=== PATIENT | female | born 1940 | race Caucasian/White ===

== ENCOUNTER → 2020-09-01 | Outpatient (CLI) | payer MEDICARE | END | disposition home or self-care (01) | LOC: PLD 15:50 → LAB SHORT 15:50 | DX: D48.5 Neoplasm of uncertain behavior of skin (principal) | CPT/HCPCS: 88305 ==

== ENCOUNTER → 2021-04-21 | Outpatient (CLI) | payer MEDICARE | END | disposition home or self-care (01) | LOC: LAB 15:40 → LAB SHORT 15:40 | DX: D48.5 Neoplasm of uncertain behavior of skin (principal) | CPT/HCPCS: 88305 ==

== ENCOUNTER 2022-05-22 11:29 | Observation (INO) | payer MEDICARE ==
[~2022-05-22] VITALS: Ht 144.8 cm; Wt 31.8 kg
[2022-05-22 13:07] LABS: BASOPHILS ABSOLUTE AUTO 0.02 K/mm3 (0.00-0.23); BASOPHILS PERCENT AUTO 0 % (0-2); EOSINOPHILS ABSOLUTE AUTO 0.01 K/mm3 (0.00-0.68); EOSINOPHILS PERCENT AUTO 0 % (0-6); Hematocrit 39.2 % (33.0-51.0); Hemoglobin 12.8 g/dL (11.5-16.0); IMMATURE GRAN ABSOLUTE AUTO 0.01 K/mm3 (0.00-0.10); IMMATURE GRAN PERCENT AUTO 0 % (0-1); LYMPHOCYTES ABSOLUTE AUTO 1.37 K/mm3 (0.84-5.20); LYMPHOCYTES PERCENT AUTO 27 % (21-46); MONOCYTES PERCENT AUTO 6 % (4-13); Mean Corpuscular HGB 29.4 pg (26.0-34.0); Mean Corpuscular HGB Conc 32.7 g/dL (31.5-36.5); Mean Corpuscular Volume 90 fL (80-100); Mean Platelet Volume 10.8 fL (9.1-12.4); NEUTROPHILS ABSOLUTE AUTO 3.34 K/mm3 (1.96-9.15); NEUTROPHILS PERCENT AUTO 66 % (41-73); Platelet Count 242 K/mm3 (150-400); RDW Coefficient Variation 13.8 % (11.7-14.2); RDW Standard Deviation 46.3 fL (35.1-46.3); Red Blood Cell Count 4.35 M/mm3 (3.80-5.20); White Blood Cell Count 5.05 K/mm3 (4.00-11.30)
[2022-05-22 13:30] LABS: Albumin/Globulin Ratio 0.9 (0.8-1.8); Bilirubin, Total 0.5 mg/dL (0.1-1.0); Bun/Creatinine Ratio 63.6 (12.0-20.0); Calcium, Blood 9.8 mg/dL (8.5-10.1); Creatinine, Blood 0.98 mg/dL (0.40-1.00); Globulin, Blood 3.4 g/dL (2.2-4.0); Potassium, Blood 3.6 mmol/L (3.5-5.5); Total Protein, Blood 6.4 g/dL (6.4-8.2)
[2022-05-22 19:36] LABS: Influenza A, PCR NEGATIVE (NEGATIVE); Influenza B, PCR NEGATIVE (NEGATIVE); Resp Syncytial Virus, PCR NEGATIVE (NEGATIVE)
[2022-05-22 19:59] LABS: Source, Urine Fem Cath
[2022-05-22 20:03] LABS: Bilirubin, Urine Neg (Neg); Blood, Urine 2+ (Neg); Glucose Qualitative, Urine Neg (Neg); Ketones, Urine 2+ (Neg); Leukocyte Esterase, Urine Neg (Neg); Nitrite, Urine Neg (Neg); Protein, Urine 1+ (Neg); Urobilinogen, Urine NORM (Normal)
[2022-05-22 20:16] LABS: Appearance, Urine Clear (Clear); Color, Urine Yellow (P-Yellow)
[2022-05-22 20:17] LABS: Bacteria Rare /hpf; Red Blood Cells, Urine 0-2 /hpf (0-2); Squamous Epithelial Cells Few /hpf (Few); White Blood Cells, Urine 0-2 /hpf (0-5)
[2022-05-22 21:51] LABS: SARS-Cov-2 (COVID-19) PCR, MMC POSITIVE (NEGATIVE)
[2022-05-22] MEDS ORDERED: ALMACONE SUSPE355 ML PO (22:44)
[2022-05-22] MEDS ORDERED: FAMO20 PO (22:44)
[2022-05-22] MEDS ORDERED: ONDA4ODT MM (22:44)
[2022-05-23] MEDS ORDERED: Lisinopril2.5 MG PO (02:06)
--- NOTE | 2022-05-23 04:08 | NUR ---
ADMISSION: PATIENT IS RECIEVED FROM ER [facility]IA [employer] OF BL[employer] TARRY LOOSE STOOL. VSS, REPORTED STOMACH UPSET THAT RESOLVED WITH INITIATION OF PROTONOX GTT. PATIENT IS ORIENTED TO ROOM AND CALL RIDER. EDUCATION IS GIVEN ON ENHANCE ISOLATION FOR COVID. PATIENT IS WEAK WHEN SSISTED TO BSC, BED ALARM IS ON FOR SAFETY.
[2022-05-23 06:03] LABS: BASOPHILS ABSOLUTE AUTO 0.02 K/mm3 (0.00-0.23); BASOPHILS PERCENT AUTO 0 % (0-2); EOSINOPHILS ABSOLUTE AUTO 0.03 K/mm3 (0.00-0.68); EOSINOPHILS PERCENT AUTO 1 % (0-6); Hematocrit 37.1 % (33.0-51.0); Hemoglobin 11.8 g/dL (11.5-16.0); IMMATURE GRAN ABSOLUTE AUTO 0.01 K/mm3 (0.00-0.10); IMMATURE GRAN PERCENT AUTO 0 % (0-1); LYMPHOCYTES ABSOLUTE AUTO 1.36 K/mm3 (0.84-5.20); LYMPHOCYTES PERCENT AUTO 25 % (21-46); MONOCYTES PERCENT AUTO 6 % (4-13); Mean Corpuscular HGB 29.5 pg (26.0-34.0); Mean Corpuscular HGB Conc 31.8 g/dL (31.5-36.5); Mean Corpuscular Volume 93 fL (80-100); Mean Platelet Volume 10.5 fL (9.1-12.4); NEUTROPHILS ABSOLUTE AUTO 3.66 K/mm3 (1.96-9.15); NEUTROPHILS PERCENT AUTO 68 % (41-73); Platelet Count 176 K/mm3 (150-400); RDW Standard Deviation 47.1 fL (35.1-46.3); White Blood Cell Count 5.38 K/mm3 (4.00-11.30)
[2022-05-23 06:48] LABS: Albumin, Blood 2.9 g/dL (3.4-5.0); Bilirubin, Total 0.4 mg/dL (0.1-1.0); Bun/Creatinine Ratio 56.6 (12.0-20.0); Creatinine, Blood 0.99 mg/dL (0.40-1.00); Globulin, Blood 2.9 g/dL (2.2-4.0); Potassium, Blood 3.3 mmol/L (3.5-5.5); Total Protein, Blood 5.8 g/dL (6.4-8.2)
--- NOTE | 2022-05-23 07:21 | NUR ---
SHIFT SUMMARY: PATIENT IS [place] AND HAS BILAT HEARING AIDES. TOLERATING A CLEAR LIQUID DIET FAIR. GI CONSULT WAS CALLED. PATIENT REPORT ABD. DISCOMFORT AND NOT EATING FOR A COUPLE MONTHS. PATIENT ALSO STAES SHE HAS NOT BEEN TAKING MEDICATIONS ON HER MED REC, "THEY DID NOT WORK." PROTONIX GTT AND IVF ARE INFUSING PER MD ORDER. PATIENT WAS INC. OF ONE BLACK LIQUID STOOL THIS SHIFT.
[2022-05-23 13:20] LABS: Hematocrit 34.2 % (33.0-51.0); Hemoglobin 10.9 g/dL (11.5-16.0)
[2022-05-23 13:33] LABS: C-REACTIVE PROTEIN, EXT RANGE 1.45 mg/dL (0.000-0.300); Free Thyroxine 0.85 ng/dL (0.70-1.60); Thyroid Stimulating Hormone 1.72 uIU/mL (0.360-4.800)
--- NOTE | 2022-05-23 17:10 | NUR ---
SHIFT SUMMARY PT A&OX 4 AND IN PLEASENT MOOD T/O SHIFT. COVID + , ENHANCED PRECAUTIONS. SUPPOSITORY ADMIN PER ORDERS, PT REFUSED [facility] @ THIS TIME. C/O STAFF NOT BEING IN ROOM T/O SHIFT, C/O BEING ABLE TO HEAR STAFF WORKING IN GARCIA. STATES "I AM JUST NOT IMPORTANT TO YOU". PT APPEARS ANXIOUS. VSS. CALL LIGHT W/IN REACH. BED ALARM IN PLACE. TOLERATING CLEAR LIQUID DIET, C/O PAIN AFTER PO K+ ADMIN-MALOX PROVIDED W/ MIN RELIEF.
[2022-05-23 21:17] LABS: Hematocrit 32.5 % (33.0-51.0); Hemoglobin 10.6 g/dL (11.5-16.0)
--- NOTE | 2022-05-24 04:39 | NUR ---
SHIFT SUMMARY: PATIENT REFUSED ENEMA @ 1999 BECAUSE SHE DID NOT SLEEP WELL THE PREVIOUS NIGHT AND IS REQUESTING SLEEP AIDE. "I DON'T WANT TO BE UP GOING TO THE BATHROOM ALL NIGHT!" DR ROJAS WAS NOTIFIED OF REQUEST FOR SLEEP AIDE AND REFUSAL OF ENEMA. ORDER FOR MELATONIN WAS OBTAINED AND MED WAS GIVEN WITH GOOD EFFECT. PATIENT WAS DIFFICULT TO WAKE FOR VS ASSESSMENT BUT WAS ABLE TO ANSWER ALL QUESTIONS. NO NEUROLOGICAL CHANGES OBSERVED AT THIS TIME,VSS. BED ALARM IS ON FOR SAFETY. BLADDER SCAN THIS SHIFT IS 147MLS. PATIENT HAD MULTIPLE SMALL LIQIUD BM'S. WITH ONE MEDIUM HARD FORMED.
[2022-05-24 05:55] LABS: Hematocrit 29.9 % (33.0-51.0); Hemoglobin 9.8 g/dL (11.5-16.0); Mean Corpuscular HGB 29.8 pg (26.0-34.0); Mean Corpuscular HGB Conc 32.8 g/dL (31.5-36.5); Mean Corpuscular Volume 91 fL (80-100); Mean Platelet Volume 11.1 fL (9.1-12.4); Platelet Count 171 K/mm3 (150-400); RDW Coefficient Variation 13.9 % (11.7-14.2); Red Blood Cell Count 3.29 M/mm3 (3.80-5.20); White Blood Cell Count 4.69 K/mm3 (4.00-11.30)
[2022-05-24 06:19] LABS: Albumin, Blood 2.2 g/dL (3.4-5.0); Albumin/Globulin Ratio 0.8 (0.8-1.8); Bilirubin, Total 0.3 mg/dL (0.1-1.0); Bun/Creatinine Ratio 39.1 (12.0-20.0); Calcium, Blood 8.8 mg/dL (8.5-10.1); Creatinine, Blood 0.92 mg/dL (0.40-1.00); Globulin, Blood 2.6 g/dL (2.2-4.0); Potassium, Blood 4.4 mmol/L (3.5-5.5); Total Protein, Blood 4.8 g/dL (6.4-8.2)
[2022-05-24 15:50] LABS: Hematocrit 35.7 % (33.0-51.0); Hemoglobin 11.3 g/dL (11.5-16.0)
--- NOTE | 2022-05-24 17:49 | NUR ---
SHIFT SUMMARY PT A&O X 2-3. FORGETFUL, AT TIMES CONFUSED. PT HAS STATED SHE WANTS TO GO HOME AND DOES NOT UNDERSTAND WHY SHE'S HERE. RE-ORIENTED PT TO REASON FOR HOSPITALIZATION, MADE MD AWARE OF PT'S CONFUSION ABOUT WHY SHE'S HERE. H&H TODAY 9.8 & 29.9.
--- NOTE | 2022-05-25 04:32 | NUR ---
SHIFT SUMMARY: NO ACUTE CHANGES THIS SHIFT. ISOLATED ELEVATED BP THIS MORNING IS OBSERVED, PATIENT IS ASYMPTOMATIC. NO BM'S THIS SHIFT, BOWEL CARE AND PRUNE JUICE WERE GIVEN. POOR PO INTAKE, REFUSED SNACK.
[2022-05-25 08:54] LABS: Hematocrit 38.4 % (33.0-51.0); Hemoglobin 12.5 g/dL (11.5-16.0); Mean Corpuscular HGB 29.8 pg (26.0-34.0); Mean Corpuscular HGB Conc 32.6 g/dL (31.5-36.5); Mean Corpuscular Volume 92 fL (80-100); Mean Platelet Volume 10.3 fL (9.1-12.4); Platelet Count 186 K/mm3 (150-400); RDW Coefficient Variation 14.1 % (11.7-14.2); RDW Standard Deviation 47.2 fL (35.1-46.3); Red Blood Cell Count 4.19 M/mm3 (3.80-5.20); White Blood Cell Count 6.89 K/mm3 (4.00-11.30)
[2022-05-25 09:09] LABS: Bun/Creatinine Ratio 20.8 (12.0-20.0); Calcium, Blood 9.4 mg/dL (8.5-10.1); Creatinine, Blood 1.01 mg/dL (0.40-1.00); Potassium, Blood 3.9 mmol/L (3.5-5.5)
[2022-05-25] MEDS ORDERED: DOCU100 PO (11:54)
[2022-05-25] MEDS ORDERED: ONDA4ODT MM (11:54)
[2022-05-25] MEDS ORDERED: MIRT30ST PO (11:54)
[2022-05-25] MEDS ORDERED: PANTOPRAZOLE SO40 M1 PO (11:56)
[2022-05-25] MEDS ORDERED: SENN187 PO (11:57)
[2022-05-25] MEDS ORDERED: MIRALAX17 GM PO (11:57)
--- NOTE | 2022-05-25 13:44 | NUR ---
DC HOME RETURNED FROM LUNCH AND PT HAD LEFT BEFORE DC INSTRUCTIONS COULD BE GIVEN. LVM REGARDING FOLLOW UP APPT WITH PCP, 06/02/22 AT 16:24 AT 2 DIFFERENT PH #'s LISTED IN CHART, & [phone]. PIV WAS DC'D PRIOR TO DC WITH CATH TIP INTACT, NO REDNESS OR SWELLING NOTED AT SITE.
== END 2022-05-25 13:16 | disposition home or self-care (01) ==
LOC: ER 11:29 → MEDS 11:30 → ER 05-23 01:30 → MEDS 05-23 01:30
PROVIDERS: Internal Medicine; Physician Assistant; Student in an Organized Health Care Education/Training Program; ADMIT Internal Medicine
DX: K92.1 Melena (principal); E87.6 Hypokalemia; K59.00 Constipation, unspecified; R74.8 Abnormal levels of other serum enzymes; U07.1 COVID-19; E46 Unspecified protein-calorie malnutrition; I10 Essential (primary) hypertension; K21.9 Gastro-esophageal reflux disease without esophagitis; Z88.6 Allergy status to analgesic agent; Z79.899 Other long term (current) drug therapy; Z20.822 Contact with and (suspected) exposure to COVID-19
CPT/HCPCS: 0241U; 36415; 51798; 74177; 80048; 80053; 81001; 82272; 82728; 83540; 83550; 83690; 83880; 84439; 84443; 85014; 85018; 85025; 85027; 86140; 93005; 93010; 96361; 96374; 96375; 96376; 99285-25; A9270; C9113; G0378; J1885; J2405; J7030; M0222; Q9967

== ENCOUNTER 2022-06-11 15:16 | Emergency (ER) | payer MEDICARE ==
[~2022-06-11] VITALS: Ht 137.2 cm; Wt 31.8 kg
[~2022-06-11 15:16] MED LIST: ALMACONE SUSPE355 ML PO; DOCU100 PO; FAMO20 PO; Lisinopril2.5 MG PO; MIRALAX17 GM PO; MIRT30ST PO; ONDA4ODT MM; PANTOPRAZOLE SO40 M1 PO; SENN187 PO
[2022-06-11 16:35] LABS: BASOPHILS ABSOLUTE AUTO 0.02 K/mm3 (0.00-0.23); BASOPHILS PERCENT AUTO 0 % (0-2); EOSINOPHILS ABSOLUTE AUTO 0.01 K/mm3 (0.00-0.68); EOSINOPHILS PERCENT AUTO 0 % (0-6); Hematocrit 34.1 % (33.0-51.0); Hemoglobin 11.5 g/dL (11.5-16.0); IMMATURE GRAN ABSOLUTE AUTO 0.01 K/mm3 (0.00-0.10); IMMATURE GRAN PERCENT AUTO 0 % (0-1); LYMPHOCYTES ABSOLUTE AUTO 1.22 K/mm3 (0.84-5.20); LYMPHOCYTES PERCENT AUTO 25 % (21-46); MONOCYTES ABSOLUTE AUTO 0.34 K/mm3 (0.16-1.47); MONOCYTES PERCENT AUTO 7 % (4-13); Mean Corpuscular HGB 30.2 pg (26.0-34.0); Mean Corpuscular HGB Conc 33.7 g/dL (31.5-36.5); Mean Corpuscular Volume 90 fL (80-100); Mean Platelet Volume 9.6 fL (9.1-12.4); NEUTROPHILS ABSOLUTE AUTO 3.25 K/mm3 (1.96-9.15); NEUTROPHILS PERCENT AUTO 67 % (41-73); Platelet Count 310 K/mm3 (150-400); RDW Standard Deviation 51.6 fL (35.1-46.3); Red Blood Cell Count 3.81 M/mm3 (3.80-5.20); White Blood Cell Count 4.85 K/mm3 (4.00-11.30)
[2022-06-11 17:06] LABS: Albumin, Blood 2.9 g/dL (3.4-5.0); Bilirubin, Total 0.5 mg/dL (0.1-1.0); Bun/Creatinine Ratio 21.5 (12.0-20.0); Calcium, Blood 10.2 mg/dL (8.5-10.1); Creatinine, Blood 1.07 mg/dL (0.40-1.00); Globulin, Blood 2.9 g/dL (2.2-4.0); Potassium, Blood 3.8 mmol/L (3.5-5.5); Total Protein, Blood 5.8 g/dL (6.4-8.2)
[2022-06-11] MEDS ORDERED: OMEP20ER PO (23:06)
[2022-06-11] MEDS ORDERED: HYDROCODONE-AC1 EAC7 PO (23:07)
[2022-06-11] MEDS ORDERED: ZESTRIL40 MG PO (23:08)
[2022-06-11] MEDS ORDERED: FOSAMAX70 MG PO (23:08)
[2022-06-11] MEDS ORDERED: OXYB5 PO (23:12)
[2022-06-12] MEDS ORDERED: PROMETHAZINE12.5 M1 PO (02:35)
[2022-06-12] MEDS ORDERED: DICY20 PO (02:35)
[2022-06-12] MEDS ORDERED: ONDA4ODT MM (02:35)
== END 2022-06-12 08:18 | disposition home or self-care (01) ==
LOC: ER 15:16
PROVIDERS: Physician Assistant
DX: K92.1 Melena (principal); R10.9 Unspecified abdominal pain; G89.29 Other chronic pain; R11.0 Nausea; K21.9 Gastro-esophageal reflux disease without esophagitis; Z88.6 Allergy status to analgesic agent; Z88.2 Allergy status to sulfonamides; Z79.899 Other long term (current) drug therapy
CPT/HCPCS: 36415; 74174; 80053; 83605; 83690; 85025; C9113; J2270; J2405; J7030; Q9967

== ENCOUNTER 2022-06-24 14:53 | Inpatient (IN) | payer MEDICARE ==
[~2022-06-24] VITALS: Ht 157.5 cm; Wt 52.3 kg
[~2022-06-24 14:53] MED LIST changes: +Bentyl20 MG PO; +CEPH500 PO; +DICY20 PO; +FOSAMAX70 MG PO; +HYDROCODONE-AC1 EAC7 PO; +MIRTAZAPINE30 MG PO; +OMEP20ER PO; +ONDA4 PO; +OXYB5 PO; +PROMETHAZINE12.5 M1 PO; +SUCR1 PO; +ZESTRIL40 MG PO
[2022-06-24 15:54] LABS: BASOPHILS ABSOLUTE AUTO 0.03 K/mm3 (0.00-0.23); BASOPHILS PERCENT AUTO 1 % (0-2); EOSINOPHILS ABSOLUTE AUTO 0.03 K/mm3 (0.00-0.68); EOSINOPHILS PERCENT AUTO 1 % (0-6); Hematocrit 29.4 % (33.0-51.0); Hemoglobin 9.7 g/dL (11.5-16.0); IMMATURE GRAN ABSOLUTE AUTO 0.03 K/mm3 (0.00-0.10); IMMATURE GRAN PERCENT AUTO 1 % (0-1); LYMPHOCYTES ABSOLUTE AUTO 0.78 K/mm3 (0.84-5.20); LYMPHOCYTES PERCENT AUTO 15 % (21-46); MONOCYTES ABSOLUTE AUTO 0.26 K/mm3 (0.16-1.47); MONOCYTES PERCENT AUTO 5 % (4-13); Mean Corpuscular HGB 30.1 pg (26.0-34.0); Mean Corpuscular Volume 91 fL (80-100); Mean Platelet Volume 10.4 fL (9.1-12.4); NEUTROPHILS ABSOLUTE AUTO 4.09 K/mm3 (1.96-9.15); NEUTROPHILS PERCENT AUTO 78 % (41-73); Platelet Count 246 K/mm3 (150-400); RDW Coefficient Variation 17.2 % (11.7-14.2); RDW Standard Deviation 56.9 fL (35.1-46.3); Red Blood Cell Count 3.22 M/mm3 (3.80-5.20); White Blood Cell Count 5.22 K/mm3 (4.00-11.30)
[2022-06-24 16:15] LABS: Albumin, Blood 2.2 g/dL (3.4-5.0); Albumin/Globulin Ratio 0.9 (0.8-1.8); Bilirubin, Total 0.2 mg/dL (0.1-1.0); Bun/Creatinine Ratio 20.8 (12.0-20.0); Calcium, Blood 10.7 mg/dL (8.5-10.1); Creatinine, Blood 1.3 mg/dL (0.40-1.00); Globulin, Blood 2.4 g/dL (2.2-4.0); Potassium, Blood 3.8 mmol/L (3.5-5.5); Total Protein, Blood 4.6 g/dL (6.4-8.2)
[2022-06-24 18:35] LABS: Percent Saturation 32.7 % (15.0-50.0)
[2022-06-24] MEDS ORDERED: METO50ER PO (20:59)
[2022-06-24] MEDS ORDERED: PANTOPRAZOLE SO40 M2 PO (21:00)
[2022-06-25 05:53] LABS: Hemoglobin 9.3 g/dL (11.5-16.0); Mean Corpuscular HGB 30.4 pg (26.0-34.0); Mean Corpuscular HGB Conc 33.2 g/dL (31.5-36.5); Mean Corpuscular Volume 92 fL (80-100); Mean Platelet Volume 10.9 fL (9.1-12.4); Platelet Count 210 K/mm3 (150-400); RDW Coefficient Variation 17.1 % (11.7-14.2); Red Blood Cell Count 3.06 M/mm3 (3.80-5.20); White Blood Cell Count 5.59 K/mm3 (4.00-11.30)
[2022-06-25 06:02] LABS: Bun/Creatinine Ratio 23.2 (12.0-20.0); Calcium, Blood 10.1 mg/dL (8.5-10.1); Creatinine, Blood 1.12 mg/dL (0.40-1.00); Potassium, Blood 3.9 mmol/L (3.5-5.5)
--- NOTE | 2022-06-25 07:42 | NUR ---
Shila slept well overnight after having a light snack at hs. Fentanyl given twice overnight with good relief to right hip. This morning, patient requested and received norco 10mg with her AM meds. Of note, the patient's hands and to a lesser degree are purple/blue. patient states baseline. Radial Radial pulses strong, dorsalis pulses thready but palpable. cap refill >3 in all distal extremities. Patient is unsure how long they have been so blue. Other than the discoloration, skin is intact with scattered small bruises throughout. patient has had only sips and chips since 2400. Covid test completed to lab. hoping for surgery today.
[2022-06-25 08:15] LABS: Influenza A, PCR NEGATIVE (NEGATIVE); Influenza B, PCR NEGATIVE (NEGATIVE); Resp Syncytial Virus, PCR NEGATIVE (NEGATIVE); SARS-Cov-2 (COVID-19) PCR, MMC NEGATIVE (NEGATIVE)
--- NOTE | 2022-06-25 18:16 | NUR ---
SHIFT SUMMARY: NO ACUTE EVENTS. C/O PAIN IN R HIP, RLE, AND BACK; MEDICATED PER EMAR WITH ADEQUATE RELIEF. HAS BEEN HYPOTENSIVE (80-90/50-60'S), HR < 100; GAVE LR BOLUS, CHANGED BP CUFF TO PEDIATRIC FOR BETTER ACCURACY. NO EVENTS ON TELE, SR. WAS NPO ALL DAY IN PREP FOR SURGERY; DR. CARDOSO STOPPED BY THIS EVENING AND STATED SHE WOULD BE THE FIRST CASE TOMORROW MORNING. HAD CT ABD/PEL.
--- NOTE | 2022-06-25 20:30 | NUR ---
ASSUMED CARE. AOX3, [place], EASIER TO HEAR IN LEFT SIDE. C/O PAIN TO THE RIGHT HIP, LATERAL ROTATION NOTED TO LLE. SWELLING TO THE RIGHT HIP INTO THE RIGHT GROIN. SHOOTING PAIN WITH SLIGHTLY MOVEMENT. PAIN 8/10. 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 VITALS WNL. 14 F HANSON PLACED DUE TO RETENTION. UA SENT TO LAB. GOOD RETURN NOTED, CLEAR YELLOW. MEDS GIVEN, MEDICATED FOR PAIN. CALL LIGHT IN REACH, BED IN LOW POSITION. WILL MONITOR.
[2022-06-25 20:35] LABS: Source, Urine Foley catheter
[2022-06-25 20:41] LABS: Bilirubin, Urine Neg (Neg); Blood, Urine Neg (Neg); Glucose Qualitative, Urine Neg (Neg); Ketones, Urine 1+ (Neg); Leukocyte Esterase, Urine Neg (Neg); Nitrite, Urine Neg (Neg); Protein, Urine 1+ (Neg); Specific Gravity, Urine 1.025 (1.003-1.022); Urobilinogen, Urine NORM (Normal)
[2022-06-25 20:48] LABS: Appearance, Urine Clear (Clear); Color, Urine Yellow (P-Yellow)
--- NOTE | 2022-06-25 22:00 | NUR ---
PT RESTING COMFORTABLY IN BED, DENIES WANTING TO BE REPOSITIONED DUE TO FEAR OF PAIN. PAIN AT TOLERATBLE LEVEL AT THIS TIME. IVF COMPLETED.
--- NOTE | 2022-06-25 23:06 | NUR ---
TONY WOKE UP TO PAIN IN THE RLE. MEDICATED WITH FENT. 25MCQ.
[2022-06-26 04:52] LABS: Hematocrit 29.1 % (33.0-51.0); Hemoglobin 9.7 g/dL (11.5-16.0); Mean Corpuscular HGB 30.2 pg (26.0-34.0); Mean Corpuscular HGB Conc 33.3 g/dL (31.5-36.5); Mean Corpuscular Volume 91 fL (80-100); Mean Platelet Volume 10.5 fL (9.1-12.4); Platelet Count 228 K/mm3 (150-400); RDW Coefficient Variation 17.2 % (11.7-14.2); RDW Standard Deviation 56.5 fL (35.1-46.3); Red Blood Cell Count 3.21 M/mm3 (3.80-5.20); White Blood Cell Count 6.82 K/mm3 (4.00-11.30)
[2022-06-26 05:10] LABS: Bun/Creatinine Ratio 25.2 (12.0-20.0); Calcium, Blood 9.9 mg/dL (8.5-10.1); Creatinine, Blood 1.07 mg/dL (0.40-1.00)
--- NOTE | 2022-06-26 05:35 | NUR ---
SHIFT SUMMARY: PT REMAINS STABLE, VS WNL. PAIN MANAGED WITH CURRENT TREATMENTS. NPO SINCE MIDNIGHT. WAS ABLE TO SLEEP WELL. SURGICAL PACK ON CHART. HANSON 14 F PLACED, WITH GOOD OUTPUT. UA WAS SENT TO LAB. RLE PAINFUL TO MOVEMENT IN THE SLIGHTEST, LATERAL ROTATION NOTED, SWELLING RIGHT HIP THAT FADES INTO THE VAGINAL AREA. KIDNEY FUNCTIONS IMPROVED SLIGHTLY PER MORNING LABS, UA NEGATIVE FOR UTI. WILL REPORT TO DAYSHIFT. CALL LIGHT REMAINS IN REACH.
--- NOTE | 2022-06-26 10:50 | NUR ---
pt is having surgery today, day surg nurses here getting her ready, and placing new iv, will leave via bed.
--- NOTE | 2022-06-26 12:07 | NUR ---
pt leaving for surgery at this time.
--- NOTE | 2022-06-26 12:26 | NUR ---
pt will be going to icu instead of surgery
--- NOTE | 2022-06-26 13:00 | NUR ---
CRITICAL LOW CBG... THIS RN CHECKED THE PT'S CBG WITH A FINGER STICK, THE RESULTS WERE "CRITICAL LO" WHICH PER THE CBG METER IS <10. THE PT WAS GIVEN 1 AMP OF D50 AND A CBG RECHECK AT 1320 SHOWED CBG OF 147. THE PT WAS MUCH MORE AWAKE AND ALERT THAN WHEN SHE ARRIVED TO THE UNIT. THE PT'S FINGERS WERE NOT DARK PURPLE. WAS AT THE BEDSIDE AND VERIFIED THIS CRITICAL LOW CBG. WILL CONTINUE TO MONITOR.
[2022-06-26 13:41] LABS: Glucose, Blood 143 mg/dL (70-99)
--- NOTE | 2022-06-26 14:42 | NUR ---
PT ARRIVAL TO THE UNIT.... PT ARRIVED ON THE UNIT APROX 1245. SHE WAS VERY SLEEPY, ROUSED TO LOUD VERBAL AND PHYSICAL STIMULI, THE PT WAS ABLE TO ANSWER SIMPLE QUESTIONS BUT FEEL BACK ASLEEP SOON THE STIMULI WAS STOPPED. THE PT'S VS STABLE AT THE TIME OF ARRIVAL WITH PT BEING IN SR IN THE 90'S SBPs STABLE IN THE 90'S-100'S MAPS >75. THE PT'S FINGER TIPS WERE DARK PURPLE, RADIAL PULSES WEAK BUT PALPABLE. THE PT'S FEET WERE COLD, TIPS OF TOES ARE DUSKY BUT PULSES ALSO PALPABLE. O2 SATS 90-100% ON RA. RR 12-16. L/S CLEAR T/O. BT PRESENT AND HYPOACTIVE, ABD SOFT AND NONTENDER TO PALPATION. THE PT'S RIGHT LEG IS SHORTER THAN THE LEFT AND EXTERNALLY ROTATED. THE PT IS VERY PAINFUL TO TOUCH. THE PT'S CBG WAS CHECKED BY FINGER STICK, THE METER SHOWED "LO" WHICH IS LESS THAN [address] JACOBO AT THE BEDSIDE AND GAVE VERBAL ORDERS FOR 1 AMP OF D50. THIS WAS GIVEN. THE PT'S CBG RECHECK WAS DONE WITH LAB DRAW THAT SHOWED THE PT'S CBG WAS 147. THE PT IS AWAKE AND ALERT SINCE SHE WAS GIVEN THE D50. THE PT IS ASKING FOR WATER AND JELLO AT THIS TIME. THE PT TOLERATED WATER WITH A STRAW AND ATE 50% OF THE JELLO CUP. A POWERGLIDE WAS PLACED IN THE PT'S NIRU. WILL CONTINUE TO MONITOR.
--- NOTE | 2022-06-26 15:46 | NUR ---
CBG CHECK... THE PT'S CBG WAS RECHECKED BY FINGER STICK, THE RESULT CAME BACK CRITICAL LOW AT 45. THE PT'S FINGERS WERE STILL VERY DUSKY, THIS RN RECHECKED THE CBG FROM HER POWER GLIDE WHICH SHOWED 147. THE PT' CONTINUES TO BE AWAKE AND ALERT. THE CRITICAL RESULTS ARE NOT SHOWING UP IN THE PT'S LAB REPORTS, THIS RN CALL THE LAB, PER THE CONSERVATION ENGINEER THEY ARE UNSURE TO WHY THE CRITICAL RESULTS ARE NOT SHOWING UP AT THIS TIME. WILL CONTINUE TO MONITOR.
--- NOTE | 2022-06-26 15:51 | NUR ---
PT'S DUSKY HANDS... PER THE PT SHE STATES THAT HER HANDS HAVE BEEN PURPLE AND DUSKY "FOR THE PAST FEW WEEKS." THE PT WAS ALSO C/O OF PAIN TO HER HANDS WHEN THEY BECOME DARK PURPLE. THE PT ALSO STATED SHE "USED TO HAVE A HARD TIME WITH LOW BLOOD SUGARS A FEW YEARS BACK." WILL CONTINUE TO MONITOR.
--- NOTE | 2022-06-26 16:10 | NUR ---
PT UPDATE.... DR. JACOBO WAS UPDATED ON THE PT'S CURRENT CONDTION, THE PT WAS STATUS CHANGED FROM ICU STATUS TO SURGICAL STATUS WITH TELE. THE PT'S VS HAVE BEEN STABLE. SHE IS SITTING UP IN THE BED WATCHING TV. THE PT'S LIFE PARTNER SEBASTIAN WAS CALLED AND UPDATED. WILL SHANTEL TO MONITOR.
--- NOTE | 2022-06-26 17:31 | NUR ---
SHIFT SUMMARY... NO ACUTE NEGATIVE CHANGES NOTED SINCE PREVIOUS ASSESSMENT. THE PT'S VS STABLE. SHE IS SITTING UP IN BED EATING HER DINNER TRAY. THE PT'S HANSON IS PATENT AND DRAINING CLEAR YELLOW URINE TO GRAVTIY. DR. CARDOSO AT THE BEDSIDE TO ASSESS THE PT. PLAN IS FOR THE PT TO BE NPO AFTER MIDNIGHT AND FOR THE PT TO HAVE SURGERY TOMORROW. PT IS AGREEABLE WITH THIS PLAN. PT IS TO TRANSFER TO THE SURGICAL FLOOR, REPORT GIVEN TO SURGICAL FLOOR ROYA LOPEZ. WILL CONTINUE TO MONITOR UNTIL PT IS TRANSFERED TO THE SURGICAL FLOOR.
[2022-06-26 18:01] LABS: Glucose, Blood 134 mg/dL (70-99)
--- NOTE | 2022-06-26 18:08 | NUR ---
PT ARRIVED TO ROOM FROM ICU. TRANSFERRED FROM ICU BED TO SURG BED. POSITIONED FOR COMFORT. PROVIDED CALL LIGHT IN PT'S REACH. REQUESTED TELE UNIT. BED ALARM ON FOR SAFETY.
[2022-06-26 22:39] LABS: Glucose, Blood 107 mg/dL (70-99)
[2022-06-27 02:47] LABS: Glucose, Blood 91 mg/dL (70-99)
--- NOTE | 2022-06-27 05:42 | NUR ---
SHIFT SUMMARY A/O X3- BEDREST THROUGHOUT THE NIGHT, SLEPT WELL. CBGS TAKEN- REMAIN STABLE AT THIS TIME. NO PAIN REPORTED THROUGHOUT SHIFT. NPO SINCE 0000. LITTLE URINE OUTPUT IN HANSON, BLADDER SCANNED WITH <12ML IN BLADDER. NO ACUTE CHANGES. WILL CONTINUE TO MONITOR AND REPORT TO ONCOMING RN.
[2022-06-27 06:35] LABS: Hematocrit 27.7 % (33.0-51.0); Hemoglobin 9.3 g/dL (11.5-16.0); Mean Corpuscular HGB 30.5 pg (26.0-34.0); Mean Corpuscular HGB Conc 33.6 g/dL (31.5-36.5); Mean Corpuscular Volume 91 fL (80-100); Mean Platelet Volume 10.7 fL (9.1-12.4); Platelet Count 236 K/mm3 (150-400); RDW Coefficient Variation 17.9 % (11.7-14.2); RDW Standard Deviation 58.7 fL (35.1-46.3); Red Blood Cell Count 3.05 M/mm3 (3.80-5.20); White Blood Cell Count 6.77 K/mm3 (4.00-11.30)
[2022-06-27 06:49] LABS: Bun/Creatinine Ratio 23.6 (12.0-20.0); Calcium, Blood 9.9 mg/dL (8.5-10.1); Creatinine, Blood 1.06 mg/dL (0.40-1.00); Potassium, Blood 3.6 mmol/L (3.5-5.5)
[2022-06-27 11:16] LABS: Glucose, Blood 98 mg/dL (70-99)
--- NOTE | 2022-06-27 11:44 | NUR ---
Pt sleeping soundly. She did not wake to voice or touch. She is very pale. Her hair is very short, dyed a bright red/pink. No UO in sloan drainage bag at 11 am. I did not note any nonverbal indicators of pain or mod discomfort at this time. Pt appears restful with even and unlabored breaths. Pt is thin and per H&P, protein/calorie malnutritioned with albumin level of 2.2. I spoke with charge accounts audit clerk and bedside RN re: plans for surgery placed on hold yesterday due to clinical decline. Surgery still planned for repair of R hip fx. Pal care to follow pt after surgery and return earlier if indicated or requested. RN to notify pal care of needs or change in status if they occur.
--- NOTE | 2022-06-27 13:28 | NUR ---
R ELBOW SKIN TEAR COVERED WITH BANDAID WAS WEAPING. BANDAID REMOVED AND ALLYVEN DRESSING APPLIES.
--- NOTE | 2022-06-27 14:07 | NUR ---
DECREASED URINE OUTPUT DR. ZARAGOZA NOTIFIED OF DECREASED URINE OUTPUT. HANSON CATHETER ASSESS, NO BLOCKAGE IN TUBING. BLADDER SCAN SHOWED 0ML IN BLADDER. IV FLUIDS INCREASED TO 75ML/HOUR PER DR. ZARAGOZA'S ORDER.
--- NOTE | 2022-06-27 16:10 | NUR ---
06/27/22 1610 Chris Garces 1GRAM IVPB GIVEN BY DR VERDUGO AT 1605.
--- NOTE | 2022-06-27 17:53 | NUR ---
REPORT GIVEN TO ZACHARY ROBERTSON RN.
--- NOTE | 2022-06-27 17:55 | NUR ---
Patient arrived from OR with anesthesia and RN's, she was on monitor. Report at bedside given. She was sleeping and opens eyes to verbal stimuli. She is on vent mask at 10 L O2 and sats >95%. Incision site C/D/I minmal sign od any drainage.She has 16Fr sloan draining to gravity light reilly colored urine. She has 20ga PowerGlide VERONICA and is infusing LR at 200 ml/hr and Levophed at 2 mcg/min and systolic. Will continue to monitor post op.
[2022-06-27 19:00] LABS: Glucose, Blood 151 mg/dL (70-99)
--- NOTE | 2022-06-27 19:00 | NUR ---
REPORT RECEIVED FROM FISHER SWORDFISH GIVEN TO ASSUMING IT SYSTEMS ANALYST CONSULTANT NURSE. PATIENT ON LR AT 200 MLS/ HOUR AND LEVOPHED AT 2 MCG/ MINUTE. CHARGE NURSE UPDATED PATIENT'S SIGNIFICANT OTHER, SEBASTIAN. BED LOW, CALL LIGHT IN REACH.
--- NOTE | 2022-06-27 19:30 | NUR ---
ASSUMED CARE OF PT, REPORT RECEIVED. PT IS NOTED TO ROUSE TO VERBAL STIMULI, STATES THAT HER HIP HURTS AND ASKS FOR ASSISTANCE WITH POSITION CHANGE TO POSITION OF COMFORT. IS NOTED TO COMPLAIN OF INCREASED PAIN WITH MOVEMENT HOWEVER RETURNS TO APPEARANCE OF SLEEPING WHEN UNDISTURBED. LEVOPHED GTT AT 2 MCG/MIN, LR INFUSING AT 200 ML PER HOUR. WILL RESUME D5 1/2NS AT 75 ML/HR WHEN INFUSION COMPLETE. WILL TITRATE LEVOPHED PT TOLERATES. SEE ICU FLOWSHEET FOR TIMES AND CHANGES.
--- NOTE | 2022-06-28 | NUR ---
PT TEMP REMAINS 96.5 AFTER MULTIPLE WARM BLANKETS PROVIDED AND TEMP IN ROOM INCREASED. ADRIENNE GARNER APPLIED, WILL MONITOR.
--- NOTE | 2022-06-28 02:26 | NUR ---
PT TRANSFER TO SURGICAL FLOOR. ARRIVED A/0, VSS. BP NOTED TO BE HYPOTENSIVE, PER TREND. PT ASYMPTOMATIC. TRANSITIONED PT FROM 7L ON OXIMIZER TO 4L NC, SATTING >95%. PLAN TO CONTINUE TO TITRATE PT DOWN. UPPER DRESSING NOTED TO BE SATURATED ON RIGHT HIP, PLAN TO CHANGE. SENSATION AND CIRCULATION IN TACT. HANSON PATENT AND DRAINING CLEAR YELLOW URINE. BED IN LOW POSITION, BED ALARM ON. CALL LIGHT IN HAND.
--- NOTE | 2022-06-28 03:18 | NUR ---
DRESSING CHANGED, UPPER DRESSING SATURATED WITH SANGUINEOUS FLUID. NO ACTIVE BLEEDING NOTED. SITE CLEANED WITH SKINTEGRETY, DRESSED WITH NEW AQUACEL DRESSINGS.
--- NOTE | 2022-06-28 05:01 | NUR ---
POD1 FOR A GAMMA NAILING OF THE RIGHT HIP. VSS, BP NOTED TO BE HYPOTENSIVE PER TREND, PT REMAINS ASYMPTOMATIC. IV FLUIDS RUNNING, PO FLUIDS ENCOURAGED. URINE OUTPUT NOTED TO BE DECREASED, CONTINUE TO CLOSELY MONITOR, AWAITING MORNING LABS. NO NEW DRAINAGE NOTED ON AQUACEL DRESSINGS. PT REPOSITIONED TOLLERATED. TOLLERATING MINIMAL PO INTAKE. PLAN FOR PATIENT TO WORK WITH PT/OT. PALLIATIVE CARE CONSULT IN PLACE. PT CURRENTLY RESTING IN BED, BED ALARM ON, CALL LIGHT IN REACH
[2022-06-28 06:10] LABS: BASOPHILS PERCENT AUTO 0 % (0-2); EOSINOPHILS PERCENT AUTO 0 % (0-6); Hematocrit 24.8 % (33.0-51.0); Hemoglobin 8.5 g/dL (11.5-16.0); IMMATURE GRAN ABSOLUTE AUTO 0.03 K/mm3 (0.00-0.10); IMMATURE GRAN PERCENT AUTO 1 % (0-1); LYMPHOCYTES ABSOLUTE AUTO 0.27 K/mm3 (0.84-5.20); LYMPHOCYTES PERCENT AUTO 5 % (21-46); MONOCYTES ABSOLUTE AUTO 0.14 K/mm3 (0.16-1.47); MONOCYTES PERCENT AUTO 2 % (4-13); Mean Corpuscular HGB 30.6 pg (26.0-34.0); Mean Corpuscular HGB Conc 34.3 g/dL (31.5-36.5); Mean Corpuscular Volume 89 fL (80-100); Mean Platelet Volume 10.6 fL (9.1-12.4); NEUTROPHILS ABSOLUTE AUTO 5.42 K/mm3 (1.96-9.15); NEUTROPHILS PERCENT AUTO 93 % (41-73); Platelet Count 219 K/mm3 (150-400); RDW Coefficient Variation 17.6 % (11.7-14.2); RDW Standard Deviation 56.5 fL (35.1-46.3); Red Blood Cell Count 2.78 M/mm3 (3.80-5.20); White Blood Cell Count 5.86 K/mm3 (4.00-11.30)
[2022-06-28 06:38] LABS: Bun/Creatinine Ratio 25.6 (12.0-20.0); Calcium, Blood 9.7 mg/dL (8.5-10.1); Creatinine, Blood 0.98 mg/dL (0.40-1.00); Potassium, Blood 3.6 mmol/L (3.5-5.5)
--- NOTE | 2022-06-28 14:54 | NUR ---
Pt had R hip fx surgical repair yesterday evening & did well overnight per PN. First PT eval and tx today. Attempted to visit earlier while pt working with therapy. Will try again later or tomorrow.
--- NOTE | 2022-06-28 16:01 | NUR ---
Second attempt at visit. Pt asleep in reclining chair, legs elevated, with O2 on via nc. She did not wake to voice or gentle touch. Case conferenced with pt's RN and CM. revisited advanced care planning with pt earlier today, during rounding. Pt confirmed that she desires to remain a full code per RN. Pt is currently a two person max assist with transfer and has her first PT eval today. Per RN, pt is experiencing minimal or no pain, so forgets RLE WB precautions and what surgical dressing on hip is for. She is easily redirected and alert and oriented otherwise per RN. CM present during conversation re: prior living situation and d/c planning depending on pt's progress with PT/OT, BP and safety with mobility. No further Pal Care f/u planned at this time but we can return as needed for s/s management if indicated or additional advanced care planning.
--- NOTE | 2022-06-28 17:49 | NUR ---
SHIFT SUMMARY HAS CONT'd TO RUN HYPOTENSIVE. DENIES DIZZINESS. PICKING AT TRAYS BUT MINIMAL PO INTAKE. URINE OUTPUT < 100. CALLED & NEW ORDERS TO INCREASE IVF. DONE AT 1700. PT SLEEPY BUT AWAKENS EASILY TO NOISE OR TOUCH. VERY [place]. PALE. WORKED w/ THERAPY & UP IN CHAIR T/O DAY.
--- NOTE | 2022-06-28 18:00 | NUR ---
DRSG CHANGE TO R HIP DUE TO SS FLUID.
--- NOTE | 2022-06-28 23:00 | NUR ---
DRESSING CHANGED COMPLETE SATURATION OF THE BANDAGES AND SHEETS UNDER THE PATIENT NOTED, SS FLUID. INCISION CLEANED WITH WOUND SPRAY AND STERILE GAUZE. INCISION NOTED TO LEAK FLUID T/O THE DRESSING CHANGE PROCESS. DRESSED WITH MEDIPORE DRESSINGS. DISPOSABE CHUCKS PLACED UNDER PATIENT.
--- NOTE | 2022-06-29 03:44 | NUR ---
CBG: CBG SPOT CHECKED READ 34. PT DROWSY, BUT RESPONSIVE. CALL PLACED TO DR GARCIA. NEW ORDER TO GIVE 0.5 AMP D50, STOP NS AND RECHECK CBG IN 15 MIN.
--- NOTE | 2022-06-29 04:07 | NUR ---
CBG: REPEAT CBG 45. DR GARCIA NOTIFIED, NEW ORDER TO GIVE ADDITIONAL 0.5 AMP D50. NEW IVF ORDERS ALSO REC.
[2022-06-29 04:46] LABS: Hematocrit 22.6 % (33.0-51.0); Hemoglobin 7.4 g/dL (11.5-16.0); Mean Corpuscular HGB 29.5 pg (26.0-34.0); Mean Corpuscular HGB Conc 32.7 g/dL (31.5-36.5); Mean Corpuscular Volume 90 fL (80-100); Mean Platelet Volume 10.9 fL (9.1-12.4); Platelet Count 210 K/mm3 (150-400); RDW Coefficient Variation 17.9 % (11.7-14.2); RDW Standard Deviation 57.3 fL (35.1-46.3); Red Blood Cell Count 2.51 M/mm3 (3.80-5.20); White Blood Cell Count 8.29 K/mm3 (4.00-11.30)
[2022-06-29 05:16] LABS: Bun/Creatinine Ratio 24.8 (12.0-20.0); Calcium, Blood 9.5 mg/dL (8.5-10.1); Creatinine, Blood 1.01 mg/dL (0.40-1.00); Potassium, Blood 3.6 mmol/L (3.5-5.5)
--- NOTE | 2022-06-29 05:22 | NUR ---
URINE OUTPUT DR GARCAI NOTIFIED OF THE PATIENT URINE OUTPUT, 45MLS. OBTAINED ORDER FOR BNP AND TO CALL BACK WITH RESULTS.
--- NOTE | 2022-06-29 05:23 | NUR ---
POD2 FOR A RIGHT GAMMA NAIL RODDING. PT SLEPT WELL T/O THE NIGHT. VSS, TELE 70-80'S. 4L O2 VIA NC. URINE OUTPUT NOTED TO BE DECREASED, SEE PREVIOUS NOTE FOR UPDATE. BLOOD SUGAR NOTED TO BELOW THIS AM, SEE PREVIOUS NOTE FOR UPDATE. BLOOD SUGAR HAS STABALIZED. DRESSING IS C/D/I. CHANGED ONCE THIS SHIFT. PAIN MANAGED WITH TYLENOL. PLAN OF CARE IS FOR PT TO WORK WITH PT/OT AND PALLIATIVE CARE.
--- NOTE | 2022-06-29 07:32 | NUR ---
MORNING MEDS HELD DUE TO ASPIRATION RISK WHILE DROWSY. AT THIS TIME, PULLS BLANKETS OVER HEAD WHENEVER ASKED A ?. ALLOWED STAFF TO CHECK BS & VITALS. DOESN'T SAY ANY WORDS BUT MOVES ARMS & HEAD TO PULL BLANKETS OVER.
--- NOTE | 2022-06-29 08:14 | NUR ---
PT OPENS EYES, MOVES HEAD BACK & FORTH TO LOOK AROUND ROOM AFTER BP & BS CHECK. LOVENOX GIVEN. THEN ASKED ASKS FOR BLANKETS TO BE PLACED BACK OVER HEAD. K-PAD ON ABD.
--- NOTE | 2022-06-29 13:11 | NUR ---
ATTENDING MD ROUNDS DISCUSSED SIGNIFICANT DIFFERENCE IN TODAY VS YESTERDAY FAR MENTATION & INTERACTION. AT THIS POINT, PT WILL SHAKE HEAD YES OR NO TO SOME ?'s BUT STILL DOENS'T ANSWER ALL ?'s. OPENS EYES SLUGGISHLY TO VERBAL STIMULI. INFORMED DR VALENZUELA THAT PT IS NOT ABLE TO TAKE ANY PILLS OR DRINKS OF FLUIDS AT THIS TIME FOR RISK OF ASPIRATION. SIGNIFICANT OTHER WAS AT BEDSIDE FOR THIS & REPORTS PT HAS N OT BEEN EATING/DRINKING WELL FOR OVER A MONTH AT HOME. HAS HAD A SIGNIFICANT WEIGHT LOSS, A UTI, & A POSSIBLE GI BLEED WHICH SHE SAW HER PCP FOR.
--- NOTE | 2022-06-29 16:04 | NUR ---
DSRG CHANGE TO R HIP DUE TO MOD AMNT OF DRNG; CLEAR/SS. GAUZE & MEDIPORE TO UPPER 2 STAPLE LINES & AQUACEL TO LOWER STAPLE LINE STAYS CDI SO DID NOT CHANGE. PT EYES OPENED SLIGHTLY. SAT UP IN BED & ASKED HOW SHE WAS DOING. ATTEMPTS TO TALK BUT VOICE IS TOO LIGHT. ATTEMPTED TO DO ORAL CARE & PT PRESSED LIPS TOGETHER TIGHT & SHOOK HEAD.
--- NOTE | 2022-06-29 18:37 | NUR ---
SHIFT SUMMARY PT's DROWSY SOMNOLENT BEING WAS CONCERNING TODAY. PREV NOTED WOULD OPEN EYES AND WATCH US BUT WOULDN'T SPEAK MUCH. AROUND 1729, PT BECAME MUCH MORE ALERT AFTER CATH CARE, LINEN CHANGE, & REPOSITIONING. STAYED AWAKE & TOOK SOME SIPS OF CLEAR APPLE ENSURE. WAS ANSWERING ?'s w/ GENTLE VOICE. HARD TO UNDERSTAND. UNSURE OF MENTATION STATUS BUT MUCH MORE ALERT. URINE OUTPUT w/ SLIGHT IMPROVEMENT. CONT's TO HAVE GENERALIZED EDEMA T/O w/ WEEPING FROM R ARM & HIP INCISION.
--- NOTE | 2022-06-29 19:30 | NUR ---
UPON ENTERING THE ROOM THE PATIENT STATED SHE WANTED TO GO HOME "RIGHT NOW". I EXPLAINED TO THE PATIENT THAT SHE IS VERY ILL AND THAT IT IS IN HER BEST INTEREST TO STAY THE NIGHT IN THE HOSPITAL WHERE WE CAN OFFER APPROPRIATE CARE. THE PATIENT HAD MANY QUESTIONS ABOUT HER HEALTH, BEING A/OX4 AT THIS TIME. I EXPLAINED TO HER HOW HER BLOOD SUGARS HAVE BEEN DIFFICULT TO MANAGE, HOW HER BLOOD PRESSURE HAS BEEN LOW, AND WHY HER LEGS ARE SO "FULL OF FLUID". THE PATIENT STATED SHE WAS "DONE" AND "JUST WANTED TO BE MADE COMFORTABLE". I EDUCATED THE PATIENT THAT SHE CAN EXPRESS THESE FEELINGS TO HER DOCTOR AND THAT SHE CAN GO ONTO COMFORT CARE. I EXPLAINED TO HER WHAT COMFORT CARE IS, THE PATIENT STATED SHE WOULD GREATLY CONSIDER THIS AND SPEAK TO HER DOCTOR ABOUT IT THE NEXT TIME SHE SAW THEM.
--- NOTE | 2022-06-29 20:25 | NUR ---
DR FISH IN ROOM FOR CULSULT. PER DR FISH, HE WOULD LIKE ANY STOOL OUTPUT TO HAVE DOCUMENTATION ON THE AMOUNT, COLOR, AND CONSISTANCY.
[2022-06-30 04:21] LABS: Hematocrit 20.3 % (33.0-51.0); Hemoglobin 6.8 g/dL (11.5-16.0); Mean Corpuscular HGB 29.6 pg (26.0-34.0); Mean Corpuscular HGB Conc 33.5 g/dL (31.5-36.5); Mean Corpuscular Volume 88 fL (80-100); Mean Platelet Volume 10.9 fL (9.1-12.4); Platelet Count 189 K/mm3 (150-400); RDW Coefficient Variation 18.1 % (11.7-14.2); RDW Standard Deviation 55.5 fL (35.1-46.3); White Blood Cell Count 6.32 K/mm3 (4.00-11.30)
[2022-06-30 04:40] LABS: Bun/Creatinine Ratio 23.4 (12.0-20.0); Calcium, Blood 8.9 mg/dL (8.5-10.1); Creatinine, Blood 0.85 mg/dL (0.40-1.00); Potassium, Blood 3.3 mmol/L (3.5-5.5)
--- NOTE | 2022-06-30 04:58 | NUR ---
POD3 FOR A GAMMA NAILING OF THE RIGHT HIP. VSS, BP NOTED TO BE HYPOTENSIVE PER TREND. NO CHANGES IN PT STATUS. URINE OUTPUT IMPROVED, 275 MLS THIS SHIFT. NO BOWEL ACTIVITY NOTED TONIGHT. BLOOD SUAGRS HAVE REMAINED STABLE T/O THE NIGHT, D5 1/2 NS CONTINUED PER ORDER. NO SIGNFIGANT PO INTAKE. PT NPO PAST 0000 FOR PLANNED EGD TODAY. DRESSING ON HIP INCISION CHANGED ONCE, CLEANED WITH SKINTEGRETY. DRESSED WITH STERILE GAUZE AND MEDIPORE TAPE. DRAINAGE APPEARS TO BE DECREASING. PT SLEPT WELL T/O THE NIGHT. REPOSITIONED Q2. PT IS CURRENTLY RESTING, BED ALARM WHITE SHOE EXAMINER LIGHT IN REACH.
--- NOTE | 2022-06-30 06:28 | NUR ---
LABS DR GARCIA UPDATED ON PATIENTS H/H. RECIEVED ORDERS FOR ONE UNIT OF PRBC AND AN H/H CHECK AFTER 6 HOURS.
--- NOTE | 2022-06-30 12:33 | NUR ---
HYPOGLYCEMIA ROUTINE BS CHECK SHOWS 62. IVF ARE ON HOLD WHILE PT GETTING 1 UNIT PRBC TRANSFUSION SO 1/2 AMP DEXTROSE GIVEN. PT OPENED EYES & RESPONDED VERBALLY PRIOR TO INJECTION. RECHECK WNL. WILL RESTART IVF WHEN BLOOD TX COMPLETED.
[2022-06-30 14:26] LABS: Hematocrit 30.6 % (33.0-51.0)
--- NOTE | 2022-06-30 15:14 | NUR ---
SUMMARY PT WENT TO PROCEDURE. PRE-PROCEDURE CBG WAS 64, ADMIN OF DEXTROSE 25 ML. D51/2 @ 100 MLS WAS INFUSING, RESTARTED AT 1330. PT RECEIVED 1 UNIT BLOOD AND KCL 270 MLS THIS AM. POST-PROCEDURE PT WAS TRANSFERRED TO PCU, WILL GIVE REPORT TO CHIEF RISK OFFICER.
--- NOTE | 2022-06-30 16:29 | NUR ---
06/30/22 1629 Francine King PATIENT TO BE SEDATED BY DR CABRERA FOR EGD WITH DR ECKERT. TELEMETRY UNIT REMOVED FOR PROCEDURE AND CALL TO EXPERIMENTAL TECHNICIAN TO NOTIFY. PLAN TO RESUME TELEMETRY UNIT POST-PROCEDURE. 2% LIDOCAINE SOLUTION SPRAYED TO OROPHARYNX USING ATOMIZATION DEVICE UNTIL GAG REFLEX GONE. TOTAL OF 3ML LIDCAINE USED.
--- NOTE | 2022-06-30 18:04 | NUR ---
PT ARRIVED TO THE ROOM FROM RECOVERY AT APPROXIMATELY 1730. PT DROWSY BUT AWAKENS WHEN SPOKEN TO. SHE IS [place]. PT'S BP REMAINS LOW. PT REPORTED FEELING SHORT OF BREATH WITH INCREASE RESP EFFORT INITIALLY. PT REPORTS SOB IS NO WORSE THAN IT HAS BEEN. O2 SATURATION >90%, RESP RATE 16. PT'S RESP RATE AND EFFORT NOW APPEARS LESS LABORED. LUNG SOUNDS ARE DIMINISHED WITH SOME CRACKLES IN THE BASES. PT'S TOES ARE DUSKY, PER PREVIOUS RN THIS IS BASELINE. CAP REFILL TO BLE AND HAND WNL. WILL CONTINUE TO MONITOR.
--- NOTE | 2022-06-30 18:47 | NUR ---
SHIFT SUMMARY PT IN PCU AFTER SCOPE BY DR. FISH THIS AFTERNOON. PT SOMNOLENT AND BP LOW PRIOR IN PACU. PLAN FOR POSSIBLE RETURN TO SURGICAL STATUS. PT'S BP IS IMPROVING. SHE IS NOW AWAKE AND ORIENTED. POWER GLIDE REMOVED FROM NIRU. PT HAS GENERALIZED EDEMA. PT'S FINGERS AND TOES ARE DUSKY BUT CAP REFIL IS <3 SECONDS, THIS IS BASELINE FOR THIS PT. NO OTHER CHANGES TO REPORT SINCE PT ARRIVED TO THE UNIT. WILL MONITOR UNTIL REPORT TO NOC RN.
[2022-07-01 02:07] LABS: Albumin/Globulin Ratio Unable to Calculate (0.8-1.8); Anion Gap Unable to Calculate mmol/L (6-16); Bun/Creatinine Ratio Unable to Calculate (12.0-20.0); Globulin, Blood Unable to Calculate g/dL (2.2-4.0)
[2022-07-01 02:21] LABS: BASOPHILS ABSOLUTE AUTO 0.01 K/mm3 (0.00-0.23); BASOPHILS PERCENT AUTO 0 % (0-2); EOSINOPHILS ABSOLUTE AUTO 0.06 K/mm3 (0.00-0.68); EOSINOPHILS PERCENT AUTO 1 % (0-6); Hematocrit 30.7 % (33.0-51.0); Hemoglobin 10.7 g/dL (11.5-16.0); IMMATURE GRAN ABSOLUTE AUTO 0.03 K/mm3 (0.00-0.10); IMMATURE GRAN PERCENT AUTO 0 % (0-1); LYMPHOCYTES ABSOLUTE AUTO 1.21 K/mm3 (0.84-5.20); LYMPHOCYTES PERCENT AUTO 15 % (21-46); MONOCYTES ABSOLUTE AUTO 0.36 K/mm3 (0.16-1.47); MONOCYTES PERCENT AUTO 4 % (4-13); Mean Corpuscular HGB 31.3 pg (26.0-34.0); Mean Corpuscular HGB Conc 34.9 g/dL (31.5-36.5); Mean Corpuscular Volume 90 fL (80-100); Mean Platelet Volume 10.6 fL (9.1-12.4); NEUTROPHILS ABSOLUTE AUTO 6.69 K/mm3 (1.96-9.15); NEUTROPHILS PERCENT AUTO 80 % (41-73); Platelet Count 174 K/mm3 (150-400); RDW Coefficient Variation 18.2 % (11.7-14.2); RDW Standard Deviation 56.8 fL (35.1-46.3); Red Blood Cell Count 3.42 M/mm3 (3.80-5.20); White Blood Cell Count 8.36 K/mm3 (4.00-11.30)
[2022-07-01 02:38] LABS: Albumin, Blood 1.6 g/dL (3.4-5.0); Albumin/Globulin Ratio 0.5 (0.8-1.8); Bilirubin, Total 0.5 mg/dL (0.1-1.0); Bun/Creatinine Ratio 24.6 (12.0-20.0); Calcium, Blood 8.8 mg/dL (8.5-10.1); Creatinine, Blood 0.81 mg/dL (0.40-1.00); Potassium, Blood 3.5 mmol/L (3.5-5.5); Total Protein, Blood 4.6 g/dL (6.4-8.2)
--- NOTE | 2022-07-01 05:46 | NUR ---
SHIFT SUMMARY ASSUMED CARE OF PT AT 1900. PT IS A/OX3 BUT DIFFICULT TO ASSESS DUE TO SEVERE HEARING LOSS. HEART SOUNDS REGULAR. LUNG SOUNDS DIMINISHED. PT WORE 2LNC T/O THEN NIGHT. PT HAD AFOLEY, DRAINING CLEAR YELLOW URINE. PT SKIN IS VERY FRAGILE WITH SKIN TEARS ALL OVER. PT ARMS AND R HIP WOUNDS ARE LEAKING. VSS.
--- NOTE | 2022-07-01 17:52 | NUR ---
SHIFT SUMMARY PT HAS BEEN RESTING IN BED FOR THE DAY. PHYSICAL THERAPY DID BED EXERCISES WITH THE PT TODAY. PT HAS HAD GENERALIZED WEEPING EDEMA. POWERGLIDE DRESSING WAS CHANGED IT BECAME COMPROMISED FROM THE WEEPING EDEMA. PT HAS HAD NO APPETITE AND HAS REQUIRED CONSIDERABLE ENCOURAGEMENT TO ATTEMPT ANY FOOD. PT HAS HAD DIFFICULTIES DRINKING WITH STRAWS, THEY WERE UNABLE TO GENERATE ENOUGH SUCTION BUT THEY ARE ABLE TO BRING A CUP TO THEIR MOUTH AND TIP IT UP. SYSTOLIC BLOOD PRESSURE HAS HELD >100 (105-125). PT HAS SIGNIFICANT PAIN WITH REPOSITIONING, PRE-MEDICATED PER MAR WHEN ABLE.
--- NOTE | 2022-07-02 05:52 | NUR ---
SHIFT SUMMARY WHEN COMING ONTO SHIFT THE PT'S AQUACEL DRESSING OVER HER RIGHT HIP FX SITE WAS SATURATED. KENROY PRYOR AND I CONSULTED A SURGICAL FLOOR NURSE AND THE AQUACEL WAS REPLACED W/ ANOTHER. THIS MORNING THE DRESSING WAS AGAIN SATURATED AND THE SURGICAL NURSE WAS CONSULTED AGAIN. HE RECOMMENDED THE DRESSING BE GAUZE W/ FOAM TAPE. THE CHRISSY HAS ONLY C/O PAIN IN HER BACK AND HAS HAD Q2 HOURLY TURNS. SHE IS CYANOTIC IN HER EXTREMITIES, HAS PITTING/WHEEPING EDEMA T/O WHICH DR'S ARE AWARE OF. PT HAS NS/D5 RUNNING AT 100ML, AND HER SPOT CHECK GLUCOSE LEVEL WAS 125 THIS AM. SHE HAS HAD NO ANGINA, OR SOB, BUT IS ON 2L NC TO MAINTAIN SPO2 >90%. PT IS HARD OF HEARING, BUT IS A&OX4. WILL CONTINUE TO MONITOR UNTIL REPORT IS GIVEN TO THE ONCOMING SHIFT RN. SEE NOTES FOR ANY UPDATES.
[2022-07-02 06:16] LABS: Hematocrit 27.7 % (33.0-51.0); Hemoglobin 9.7 g/dL (11.5-16.0); Mean Corpuscular HGB 31.6 pg (26.0-34.0); Mean Corpuscular Volume 90 fL (80-100); Mean Platelet Volume 10.8 fL (9.1-12.4); Platelet Count 180 K/mm3 (150-400); RDW Coefficient Variation 18.7 % (11.7-14.2); Red Blood Cell Count 3.07 M/mm3 (3.80-5.20); White Blood Cell Count 6.95 K/mm3 (4.00-11.30)
[2022-07-02 06:31] LABS: Bun/Creatinine Ratio 24.8 (12.0-20.0); Calcium, Blood 8.6 mg/dL (8.5-10.1); Creatinine, Blood 0.73 mg/dL (0.40-1.00); Potassium, Blood 3.7 mmol/L (3.5-5.5)
--- NOTE | 2022-07-02 11:39 | NUR ---
CARE NOTE AFTER THIS NURSE GOT VITAL SIGNS, THE PT WAS ENCOURAGED TO ALLOW STAFF TO ASSIST HER VIA LIFT TO GET UP IN CHAIR. PT DENIED WANTING TO GET INTO CHAIR AND STATED "I'VE HAD A GRUELING MORNING AND AM GOING TO GET SOME REST." THIS NURSE EDUCATED PT ON IMPORTANCE OF SITTING IN CHAIR DURING THIS SHIFT AND LET PT KNOW THAT AFTER HER NAP, STAFF WILL ENCOURAGE HER AGAIN TO SIT IN THE CHAIR. PT ALSO DENIED ALLOWING THIS NURSE TO CHANGE WHEEPING DRESSING OVER RIGHT SURGICAL SITE AT THIS TIME. SHE DENIED PAIN. WILL CONTINUE TO MONITOR. CALL LIGHT IS IN REACH. PT NOW APPEARS TO BE SLEEPING.
--- NOTE | 2022-07-02 15:29 | NUR ---
WOUND CARE SURGICAL SITE ON RIGHT HIP CLEANED AND REDRESSED W/ GAUZE/TAPE. PADS UNDERNEATH ALSO CHANGED.
--- NOTE | 2022-07-02 17:32 | NUR ---
SHIFT SUMMARY PT IS ALERT AND ORIENTED X 4. SHE IS VERY HARD OF HEARING BUT IS ABLE TO MAKE HER NEEDS KNOWN AND HAS USED THE CALL LIGHT APPROPRIATELY. HR AND BP STABLE, SPO2 >95% VIA 3-5L NC. SHE HAS DENIED FEELINGS OF CHEST PAIN/PRESSURE BUT REPORTED NAUSEA, SEE EMAR. SHE HAS HAD VERY POOR PO INTAKE AND HAS NEEDED MUCH ENCOURAGEMENT FROM STAFF WELL SIGNIFICANT OTHER ANEL TO EAT. THIS NURSE EDUCATED PT ON IMPORTANCE OF NURTITIONAL INTAKE FOR WOUND HEALING WELL TO BUILD STRENGTH. SHE EXPRESSED UNDERSTANDING BUT HAS DENIED MOST PO INTAKE WHEN OFFERED. THIS NURSE ALSO EDUCATED PT ON IMPORTANCE TO SIT UP IN CHAIR DURING SHIFT AND PT REPORTED FEELING TOO TIRED FROM SESSION W/ PHYSICAL THERAPY TO SIT IN CHAIR. SHE WAS AT EDGE OF BED THIS AM WHEN WORKING W/ PHYSICAL THERAPY. SEE PREVIOUS NOTE REGARDING R SURGICAL SITE WOUND CARE. DRESSING REMAINS DRY/CLEAN/INTACT. MEPILEX DRESSING OVER COCCYX AND LOW BACK REMAIN IN PLACE WELL AND ARE DRY/CLEAN. HANSON CATHETER IS IN PLACE AND DRAINING TO GRAVITY STRAW YELLOW OUTPUT. OCCASIONAL DRY COUGH NOTED. POWERGLIDE IN NIRU IS INFUSING PER EMAR ORDERS. LEFT IV IS SALINE LOCKED. SIGNIFICANT OTHER ANEL WAS AT BEDSIDE DURING SHIFT. Q2 TURNING WAS IMPLIMENTED TO PREVENT SKIN BREAKDOWN. BANDAGE ALSO APPLIED TO RIGHT ELBOW SKIN TEAR. LEGS ARE ELEVATED AND PILLLOW PLACED TO PREVENT R HIP INTERNAL ROTATION. NO ACUTE CHANGES NOTED. PT NOW APPEARS TO BE SLEEPING, CALL LIGHT IN REACH AND BED IN LOW.
--- NOTE | 2022-07-03 06:22 | NUR ---
SHIFT SUMMARY PT IS A&OX4, REQUIRES Q2 TURNS IN BED, HAS BEEN SLEEPING MOST OF THE SHIFT, AND HAS D5% RUNNING AT 50 ML/HR. THE PT HAD A GLUCOSE SPOT CHECK THIS AM AND HER BLOOD SUGAR WAS 76. SHE WAS GIVEN GRHAMCRACKERS AND OJ. SHE BEGAN TO FEEL NAUSEATED AND WAS MEDICATED PER EMAR W/ ZOFRAN. SHE HAD A DRESSING CHANGE THIS AM ON HER HIP FX SURG SITE. SHE IS STILL WHEEPING AND HAD TO HAVE A LINEN CHANGE. SHE HAS NO C/O ANGINA, PAIN, SOB, OR DIZZINESS. SHE IS ON 2-3L NC O2 TO MAINTAIN SP02 >90%. WILL CONTINUE TO MONITOR UNTIL SHIFT REPORT IS GIVEN TO THE ONCOMING SHIFT RN. SEE NOTES FOR ANY UPDATES.
[2022-07-03 07:42] LABS: BASOPHILS ABSOLUTE AUTO 0.01 K/mm3 (0.00-0.23); BASOPHILS PERCENT AUTO 0 % (0-2); EOSINOPHILS ABSOLUTE AUTO 0.09 K/mm3 (0.00-0.68); EOSINOPHILS PERCENT AUTO 2 % (0-6); Hematocrit 29.6 % (33.0-51.0); Hemoglobin 9.8 g/dL (11.5-16.0); IMMATURE GRAN ABSOLUTE AUTO 0.02 K/mm3 (0.00-0.10); IMMATURE GRAN PERCENT AUTO 0 % (0-1); LYMPHOCYTES ABSOLUTE AUTO 0.81 K/mm3 (0.84-5.20); LYMPHOCYTES PERCENT AUTO 14 % (21-46); MONOCYTES ABSOLUTE AUTO 0.25 K/mm3 (0.16-1.47); MONOCYTES PERCENT AUTO 4 % (4-13); Mean Corpuscular HGB 30.4 pg (26.0-34.0); Mean Corpuscular HGB Conc 33.1 g/dL (31.5-36.5); Mean Corpuscular Volume 92 fL (80-100); Mean Platelet Volume 10.7 fL (9.1-12.4); NEUTROPHILS ABSOLUTE AUTO 4.68 K/mm3 (1.96-9.15); NEUTROPHILS PERCENT AUTO 80 % (41-73); Platelet Count 213 K/mm3 (150-400); RDW Coefficient Variation 19.1 % (11.7-14.2); RDW Standard Deviation 63.3 fL (35.1-46.3); Red Blood Cell Count 3.22 M/mm3 (3.80-5.20); White Blood Cell Count 5.86 K/mm3 (4.00-11.30)
--- NOTE | 2022-07-03 09:31 | NUR ---
ASSUMED CARE PT IS ALERT AND ORIENTED. SPO2 >92% ON 2.5L NC. MAP >65. PT IS STILLAGUAMISH. PT HAS MULTIPLE SKIN TEARS SCATTERED THROUGHOUT AND HAS WEEPING EDEMA. SURGICAL SITE DRESSING WAS SATURATED WITH SEROUS FLUID. INCISION SITE IS INTACT W/ SWELLING. POOR APPETITE, DECLINED BREAKFAST. PT DOES NOT C/O OF ANY PAIN. DR ZARAGOZA AND DR VALENZUELA IN TO SEE PT AND UPDATE GIVEN. SWALLOW EVAL TO BE ORDERED. PLAN IS SNF AND OUT OF BED INTO CHAIR.
--- NOTE | 2022-07-03 16:45 | NUR ---
PATIENT ARRIVED TO UNIT VIA BED FROM PCU. A&O X4. POD 6 R HIP PINNING, GAUZE DRESSING IN PLACE, C/D/I. LUNGS CLEAR, ON ROOM AIR SATTING >92%. HANSON IN PLACE DRAINING CLEAR YELLOW URINE. EDEMA TO BLE, 1+. FINGERS BILATERALLY ARE BLUE/PURPLE. PATIENT REPORTS FINGERS HAVE BEEN LIKE THIS X4-5 MONTHS & PCP "DIAGNOSED WITH SOME WEIRD DISEASE". ORIENTED PATIENT TO ROOM, CALL LIGHT IN REACH, NO NEEDS AT THIS TIME.
--- NOTE | 2022-07-03 16:55 | NUR ---
SR. MERCHANDISE PLANNER CHECKED PATIENTS BLOOD SUGAR W/ POC GLUCOSE TESTING AND GOT RESULT OF 20 FROM FINGER STICK. PATIENT SITTIING UP IN BED, ASYMPTOMATIC. PREVIOUS RN FROM PCU PRESENT, GARTH BENNETT, & DEBBIE BLOOD FROM PATIENTS POWERGLIDE FOR CBG TEST, RESULTED 90. PATIENTS FINGERS APPEAR TO HAVE VERY POOR PERFUSION, APPEAR PURPLE/BLUE. AWARE.
--- NOTE | 2022-07-03 18:58 | NUR ---
NO ACUTE CHANGES SINCE ARRIVAL TO UNIT. CALLS APPROPRIATLY, WILL REPORT TO ONCOMING RN.
--- NOTE | 2022-07-04 03:37 | NUR ---
SHIFT SUMMARY NO ACUTE CHANGES OVERNIGHT. VSS, BP AT SOFT SIDE. DECONDITIONED. POOR APPETITE. PT REPORTS SOB WHEN TALKING. PT HARD TIME TALKING, [place]. O2 SATS AT 94% WHILE TALKING. IV FLUIDS INFUSING. PT STILL APPEARS PALE. WEEPING ON LEFT ARM. POWERGLIDE ON NIRU. AHNSON IN PLACE. USE CALL LIGHT, MAKE NEEDS KNOWN. PT PREFER TO HAVE MEDS CRUSHED, MIXED WITH VANILA PUDDING. CBG CHECKED BEFORE MIDNIGHT AT 98. CALL LIGHT WITHIN REACH. WILL PROVIDE REPORT TO ONCOMING NURSE.
[2022-07-04 10:40] LABS: Bun/Creatinine Ratio 20.5 (12.0-20.0); Calcium, Blood 9.2 mg/dL (8.5-10.1); Creatinine, Blood 0.88 mg/dL (0.40-1.00); Potassium, Blood 3.8 mmol/L (3.5-5.5)
--- NOTE | 2022-07-04 10:47 | NUR ---
NO ACUTE CHANGES SINCE ASSUMPTION OF CARE @ 0700. REPORT GIVEN TO ROYA VEGA.
[2022-07-04 16:20] LABS: Glucose, Blood 113 mg/dL (70-99)
--- NOTE | 2022-07-04 17:14 | NUR ---
SHIFT SUMMARY PT POD #7 FOR GAMMA NAILING. PT IS VERY FATIGUED AND WEAK. WEEPING EDEMA NOTED T/O THE BODY. PT IS NOT EATING AND URINE OUTPUT IS LOW. BLOOD GLUCOSE TAKEN BY BLOOD DRAWS AND WNL. VSS. PALLIATIVE CARE CONSULTED.
--- NOTE | 2022-07-05 01:13 | NUR ---
0113: PT WAS FOUND TO BE COLD, CLAMMY, DIAPHORETIC. PT HAD ALTERED MENTATION, WAS A&OX1 TO HERSELF. CONFUSED REGARDING SITUATION. BLOOD GLUCOSE WAS CHECKED AND FOUND TO BE 59. DEXTROSE WAS GIVEN PER EMAR ORDERS. BLOOD GLUCOSE WAS RECHECKED AND FOUND TO BE 144. RECTAL TEMPERATURE WAS 92.5. WARM BLANKETS APPLIED. PT REMAINS EDEMATOUS T/O. PROVIDER CALLED AND UPDATED. NO NEW ORDERS GIVEN AT THIS TIME. PROVIDER ADVISED CALLING BACK IF TEMPERATURE DOES NOT INCREASE.
--- NOTE | 2022-07-05 02:18 | NUR ---
0215 hrs PT LIFES PARTNER SEBASTIAN, WAS CALLED AND INFORMED IN PT'S MOVE TO PCU 20.
[2022-07-05 02:48] LABS: Hematocrit 26.2 % (33.0-51.0); Mean Corpuscular HGB 31.5 pg (26.0-34.0); Mean Corpuscular HGB Conc 34.4 g/dL (31.5-36.5); Mean Corpuscular Volume 92 fL (80-100); Mean Platelet Volume 10.8 fL (9.1-12.4); Platelet Count 220 K/mm3 (150-400); RDW Standard Deviation 63.3 fL (35.1-46.3); Red Blood Cell Count 2.86 M/mm3 (3.80-5.20); White Blood Cell Count 7.59 K/mm3 (4.00-11.30)
--- NOTE | 2022-07-05 03:00 | NUR ---
ARRIVAL TO ICU SEE PREVIOUS NOTE REGARDING RAPID RESPONSE AND TRANSFER TO PCU. PT TRANSFERRED TO ICU DUE TO HYPOTENSION AND DECREASED LOC. MAP IN 50S. HOSPITALIST NOTIFIED AND ORDER RECEIVED FOR LEVOPHED. LEVOPHED INFUSING AT 3MCG/MIN TO MAINTAIN MAP >65. HR 60S ON MONITOR, PULSES FAINT THROUGHOUT. PT DOES NOT FOLLOW ANY COMMANDS. WITH STERNAL RUB PT REACHES UP AND ATTEMPTS TO PUSH HAND OFF. PUPILS 4MM, EQUAL, SLUGGISH TO RESPOND. PT RESISTS OPENING EYELIDS. CORE TEMP 92.0. BEAR HUGGER AND WARM BLANKETS IN PLACE. R HIP DRESSING IN PLACE WITH SEROUS DRAINAGE. R LOWER EXTREMITIY HAS INTERNAL ROTATION. HANSON HAS SMALL AMOUNT OF THICK CLOUDY/YELLOW FLUID IN TUBING. SHE IS RECEIVING D5 75ML/HR AND HAS Q1HR CBG CHECKS.
[2022-07-05 03:03] LABS: Calcium, Blood 8.9 mg/dL (8.5-10.1); Creatinine, Blood 0.9 mg/dL (0.40-1.00); Potassium, Blood 3.8 mmol/L (3.5-5.5)
--- NOTE | 2022-07-05 03:28 | NUR ---
RAPID RESPONSE TX'D TO PCU 20 SURGICAL NURSE DINH CALLED CRYSTAL MACHINE MILKER AND I TO COME LOOK AT THE PT IN ROOM 211 (THIS PT) BECAUSE SHE WAS HAVING LOW TEMPS AND WAS BECOMING MORE LETHARGIC. WHEN GOING INTO THE ROOM THE PT WAS ABLE TO OPEN HER EYES, AND WAS HAVING OCCASIONAL MOANS. A ASSEMBLER MECHANICAL ORDNANCE WAS CALLED BY A SURGICAL FLOOR NURSE AT 0148. DR. JACOBO CAME TO BEDSIDE ALONG W/ OTHER NURSES INCLUDING ICU MACHINE MILKER. AN EKG WAS OBTAINED, BLOOD SUGAR WAS CHECKED, VS WERE TAKEN, AND A FLUID BOLUS WAS STARTED. IT WAS DEEMED APPROPRIATE AT THAT TIME THAT SHE COULD GO TO PCU AND BLOOD PRESSURE COULD BE MANAGED W/ FLUIDS, TEMPATURE COULD BE MANAGED W/ A BEAR HUGGER AND WARMED FLUIDS, AND WE WOULD DO Q1 BLOOD SUGAR CHECKS. PT ARRIVED TO PCU 20 ABOUT 0210. HER REGULAR HANSON CATH WAS D/C'D AND A TEMPATURE HANSON WAS PLACED. THE PT'S B/P CONTINUED TO DROP AND SHE BECAME COMPLETELY LETHARGIC AND WOULD NO LONGER RESPOND TO PHYSICAL STIMULI. OXYGEN INCREASED TO 6L NC W/ SP02 IN THE UPPER 80'S. AT ABOUT 0250 THE PT WAS TX'D TO ICU 2 W/ ROYA BROOKS TAKING OVER CARE. PT'S LIFE PARTNER WAS NOTIFED OF THE TRANSFER TO ICU 02.
--- NOTE | 2022-07-05 04:21 | NUR ---
0200 HRS: HAND FILER BALANCE WHEEL INITIATED. FINAL REPORT GIVEN TO PCU NURSE MARK NEUMANN. PT TRANSFERED TO PCU VIA BED.
--- NOTE | 2022-07-05 04:40 | NUR ---
UPDATE DR JACOBO AT BEDSIDE FOR EVAL. PLAN TO CHANGE FLUIDS TO D5 1/2NS AND INFUSE THROUGH FLUID WARMER. CORE TEMP 92.7. BEAR HUGGER AND MULTIPLE BLANKETS IN PLACE. CHEST XRAY AND ECHO THIS AM. URINE SAMPLE SENT. LEVOPHED AT 2MCG/MIN.
[2022-07-05 04:57] LABS: Source, Urine Foley catheter
[2022-07-05 05:03] LABS: Appearance, Urine Turbid (Clear); Bilirubin, Urine Neg (Neg); Blood, Urine 5+ (Neg); Color, Urine Yellow (P-Yellow); Glucose Qualitative, Urine Neg (Neg); Ketones, Urine Neg (Neg); Leukocyte Esterase, Urine 3+ (Neg); Nitrite, Urine Pos (Neg); Protein, Urine 3+ (Neg); Urobilinogen, Urine NORM (Normal)
[2022-07-05 05:13] LABS: Transitional Epithelial Cells Few /hpf (0-Rare)
[2022-07-05 05:15] LABS: Calcium Oxalate Crystals Rare /hpf; Triple Phosphate Crystals Few /hpf
[2022-07-05 05:17] LABS: Bacteria Many /hpf; Red Blood Cells, Urine 25-50 /hpf (0-2); Squamous Epithelial Cells Few /hpf (Few); White Blood Cells, Urine 50-100 /hpf (0-5)
[2022-07-05 05:18] LABS: Renal Epithelial Few /hpf (0-Rare)
--- NOTE | 2022-07-05 07:00 | NUR ---
ASSUME CARE: I have assumed care of this patient.
--- NOTE | 2022-07-05 07:21 | NUR ---
SHIFT SUMMARY PT RECEIVING D5 1/2NS 75ML/HR AND LEVOPHED 2MCG/MIN. CORE TEMP 92.9. BEAR HUGGER IN PLACE AND WARM FLUIDS INFUSING. SHE IS ON 3L NC. CXR AND HEAD CT DONE THIS AM. AT END OF SHIFT, PT IS FIDGITING AND PULLING BLANKETS AND EQUIPMENT OFF. SHE STS "PLEASE GET ME OUT OF HERE". SHE DOES NOT ANSWER QUESTIONS OR FOLLOW COMMANDS. UNABLE TO REORIENT PATIENT. R HIP AND UPPER EXTREMITIES CONTINUE TO WEEP WITH MULTIPLE DRY FLOWS IN PLACE. HANSON HAS MINIMAL OUTPUT THAT IS CLOUDY/YELLOW WITH SEDIMENT. CBGS 90S-110S. BED IN LOWEST POSITION, CALL LIGHT WITHIN REACH. WILL REPORT TO ONCOMING RN.
[2022-07-05 10:07] LABS: Free Thyroxine 0.33 ng/dL (0.70-1.60)
--- NOTE | 2022-07-05 10:07 | NUR ---
Echocardiogram completed.
--- NOTE | 2022-07-05 10:20 | NUR ---
PROVIDER PHONE CALL: Resident team called and notified of free T3, T4 results.
[2022-07-05 10:23] LABS: Triiodothyronine, Free <0.50 pg/mL (2.18-3.98)
--- NOTE | 2022-07-05 10:53 | NUR ---
CENTERAL ACCESS: Levophed currently infusing 2mcg/min into RUE power glide. +blood return PICC line discussed with charge account identification clerk; will seek out qualified personnel for placement.
[2022-07-05 12:55] LABS: Stool Occult Bld Immuno 1 Positive (NEGATIVE)
--- NOTE | 2022-07-05 12:57 | NUR ---
PROVIDER PHONE CALL: Dr Gee and Dr Elizabeth notified of pt's NPO status. Clarified D5W and D51/2 NS orders. Telephone order cancel D5W. PICC line deferred as levophed infusing at low rate.
--- NOTE | 2022-07-05 14:17 | NUR ---
PROVIDER UPDATE: Dr Elizabeth updated on pt's levophed requirements. No PICC RN available to place PICC line. RN instructed to D/C cardiology consult and request centeral line placement from pulmonology. Palliative care RN updated.
--- NOTE | 2022-07-05 14:36 | NUR ---
PROVIDER UPDATE/CONSULT: Dr Castro called to request centeral line. Dr Elizabeth updated and consult placed.
[2022-07-05 15:36] LABS: Glucose, Blood 149 mg/dL (70-99)
[2022-07-05 16:32] LABS: Base Excess Venous -12.5 mmol/L; Bicarbonate Venous 15.1 mmol/L (24.0-30.0); PCO2 Venous 43.7 mmHg (38-42); pH Blood Venous 7.17 (7.34-7.37)
[2022-07-05 16:33] LABS: Albumin, Blood 1.6 g/dL (3.4-5.0); Albumin/Globulin Ratio 0.6 (0.8-1.8); Bilirubin, Total 0.1 mg/dL (0.1-1.0); Bun/Creatinine Ratio 19.2 (12.0-20.0); Calcium, Blood 9.4 mg/dL (8.5-10.1); Creatinine, Blood 0.99 mg/dL (0.40-1.00); Globulin, Blood 2.8 g/dL (2.2-4.0); Potassium, Blood 3.7 mmol/L (3.5-5.5); Total Protein, Blood 4.4 g/dL (6.4-8.2)
--- NOTE | 2022-07-05 17:32 | NUR ---
PHARMACY PHONE CALL: take away man unable to obtain second power glide or peripheral access. Pharmacy called to discuss maxipime and albumin. Will bolus maxipime over five minutes and albumin will be given along with levophed per pharmacist recommendation.
--- NOTE | 2022-07-05 18:32 | NUR ---
Multiple visit to review patient. Attemtpeted some symptom assessment questions with morning she tried to answer a few of them. Pt frail unalbe to focus gaze aggitated and time and somewhat somulent. Later today was able to sit up. She focues a little more with glasses and hearing aids on. Still unable to verbalize of focus. Called her Partner and he came to hospital. He is very disbaled with a old back injury walks with great difficulty. He was very distraught when he saw how much she had declined. We reviewed how the day wnt and the medications she was on and the results of the echo relayed by the physician. Asked if she had power of farm owner operator or armstrong or advance directives. They have no formal documents. He is twenty years younger than her and they have been to to [facility] for twenty four years. He had a stroke a few years ago and has surred speech. She cared for him. She has children that are estanaged. He ahs tried to get them to reconcile he was afraid if had another stroke she would be alone. He states they are mean to her and nothing worked so they dont see them. They retired together he took his 401K and bought them a house and some land. they have been very happy in [place]. We reviewed the past six months. He has noted some decline but the pass six weeks it has excalated. She has been having difficulty with urinary tract infections and loosing weight rapidly. We discussed prognosis and risks and benefits of care plan. We discussed limited medical care versus full treatment. We reviewed cpr and life support. He states she would not want the trauma and life support. He was tearful and held her hand but was clear on his intent. Informed physician and placed DNR order. Pt kps socore is 30% suggest d-dimer or cancer marker labs for supportive diagnosis. At this time pt would qualify for hospice. Did not disucuss hospice but prepared her partner that is any further decline we will dicuss an end of life plan. Hair ayala pt with nursing and physician. Will have pako support pt partner.
--- NOTE | 2022-07-05 19:26 | NUR ---
SHIFT SUMMARY: NEURO: pt alert to voice. speaks in a very soft voice, occasionally answers questions. She moves all extremities and pulls at clothing and tubes. Does not consistantly follow commands. Pt's hearing aids were sent home with her significant other. CARDIAC: levophed infused through LUE power glide for much of day. Nursing staff unable to obtain second peripheral IV or power glide. Femoral centeral line and artery line placed this evening by java systems analyst. Levophed currently at 12 mcg/min RESPIRATORY: shallow respirations. difficult to obtain accurate Sp02 pleth due to poor perfusion. Nasal prop and forehead prob both provided inconsistant readings. Pt on 2L NC and Sp02 in mid 90's when pt resting comfortably. GI/: pt with 1 dark brown BM. minimal amount of cloudy, yellow urine in sloan. UOP discussed with providers. SKIN: several dry flows changed under pt today due to weeping. Surical wound was redressed several times as well. Fragile skin with tears to BUE. Breakdown noted to the coccyx as well. PSYCH/SOCIAL: pt's SO was at bedside and supportive throughout the day. He did note that pt's son earlier this year and stated that he would like pt to use the same home, [facility], if she were to pass as well.
--- NOTE | 2022-07-05 19:30 | NUR ---
ASSESSMENT/ASSUMED CARE PT OPEN EYES TO VERBAL STIMULI. NOT ANSWERING QUESTIONS OR FOLLOWING INSTRUTIONS. PUSHES STAFF AWAY WHEN TRYING TO DO CARE. LUNGS CLEAR BUT DECREASED IN THE BASES ON 2 LITER VIA NC. SPO2 90-93%. RESP SHALLOW. HEART RATE REGULAR IN THE 70-80'S. BP STABLE ON LEVOPHED AT 12 MCQ/MIN VIA CENTRAL LINE TO RIGHT GROIN. GENERAL EDEMA WITH WEEPING TO EXT. BT+HYPOACITVE. PT NPO. SKIN TEARS NOTED TO BILAT EXT. COCCYX WITH BRUISING AND OPEN AREA. PT TURNED OFF COCCYX. BILAT DRSG TO HEELS FOR PROTECTION. CENTRAL LINE AND A LINE TO RIGHT GROIN. HANSON CATH WITH CLOUDY YELLOW URINE SCANT AMT. POWER GLIDE TO LEFT UPPER ARM DC'D INTACT. ORAL CARE DONE.
--- NOTE | 2022-07-05 21:39 | NUR ---
O2 RT INCREASED O2 TO 7 LITERS VIA MOUTH. SPO2 96%. RECTAL TEMP PROBE PLACED TEMP UP TO 93.3 WITH BEAR HUGGER ON.
--- NOTE | 2022-07-05 22:36 | NUR ---
SKIN TEARS PT HAS SKIN TEARS TO BILAT FOREARMS. WEEPING SEROUS FLUID. STERI STRIPS TO SKIN TEARS, COVERED WITH MEXTRA SUPERABSORBENT PAD AND NON-ADHERENT PAD, WRAPPED WITH KERLIX MEFIX TAPE ON BILAT FOREARMS. COCCYX DRSG APPLIED. RIGHT HIP DRSG REMOVED DRAINING SEROUS FLUID. AREA CLEAN AND DRIED MEXTRA SUPERABSORBENT DRSG AND ABD DRSG APPLIED. LIMITED AMT MEFIX TAPE APPLIED. CENTRAL LINE/A LINE DRSG CHANGED. CESIA DRSG APPLIED.
--- NOTE | 2022-07-06 03:28 | NUR ---
O2 RT DECREASED O2 TO 6 LITERS VIA NC TO MOUTH. SPO2 99-100%
[2022-07-06 04:35] LABS: BASOPHILS ABSOLUTE AUTO 0.02 K/mm3 (0.00-0.23); BASOPHILS PERCENT AUTO 0 % (0-2); EOSINOPHILS PERCENT AUTO 0 % (0-6); Hematocrit 22.6 % (33.0-51.0); Hemoglobin 7.6 g/dL (11.5-16.0); IMMATURE GRAN ABSOLUTE AUTO 0.06 K/mm3 (0.00-0.10); IMMATURE GRAN PERCENT AUTO 1 % (0-1); LYMPHOCYTES ABSOLUTE AUTO 0.54 K/mm3 (0.84-5.20); LYMPHOCYTES PERCENT AUTO 4 % (21-46); MONOCYTES PERCENT AUTO 2 % (4-13); Mean Corpuscular HGB 30.8 pg (26.0-34.0); Mean Corpuscular HGB Conc 33.6 g/dL (31.5-36.5); Mean Corpuscular Volume 92 fL (80-100); Mean Platelet Volume 11.2 fL (9.1-12.4); NEUTROPHILS ABSOLUTE AUTO 11.41 K/mm3 (1.96-9.15); NEUTROPHILS PERCENT AUTO 93 % (41-73); Platelet Count 217 K/mm3 (150-400); RDW Coefficient Variation 18.6 % (11.7-14.2); RDW Standard Deviation 61.4 fL (35.1-46.3); Red Blood Cell Count 2.47 M/mm3 (3.80-5.20); White Blood Cell Count 12.33 K/mm3 (4.00-11.30)
[2022-07-06 05:01] LABS: Albumin, Blood 2.6 g/dL (3.4-5.0); Albumin/Globulin Ratio 1.1 (0.8-1.8); Bilirubin, Total 0.3 mg/dL (0.1-1.0); Bun/Creatinine Ratio 21.1 (12.0-20.0); Calcium, Blood 9.3 mg/dL (8.5-10.1); Creatinine, Blood 0.95 mg/dL (0.40-1.00); Globulin, Blood 2.3 g/dL (2.2-4.0); Magnesium, Blood 1.5 mg/dL (1.6-2.4); Potassium, Blood 3.7 mmol/L (3.5-5.5); Total Protein, Blood 4.9 g/dL (6.4-8.2); Triiodothyronine, Free 1.79 pg/mL (2.18-3.98)
[2022-07-06 05:31] LABS: PCO2 Venous 55.2 mmHg (38-42); pH Blood Venous 7.18 (7.34-7.37)
[2022-07-06 05:32] LABS: Base Excess Venous -7.6 mmol/L; Bicarbonate Venous 18.2 mmol/L (24.0-30.0)
--- NOTE | 2022-07-06 05:35 | NUR ---
LABS CALL TO DR OLSON REGARDING AM LABS VBG, H&H AND CHEM. OBTAINED ORDERS FOR BIPAP, 2GM MAG, AND KPHOS 20 MMOL. CALL TO RT FOR BIPAP
--- NOTE | 2022-07-06 06:37 | NUR ---
SHIFT SUMMARY PT RESTING QUIETLY WITH BIPAP ON. BIPAP SETTINGS 08/31 RATE 14 FIO2 60%. LUNGS CLEAR BUT DECREASED. HEART RATE REGULAR 70-80'S. LEVOPHED DOWN TO 10 MCQ/MIN TO KEEP MAP GREATER THAN 65. EDEMA AND WEEPING TO ALL EXT. MULTIPLE SKIN TEARS TO UPPER EXT. WOUND PHOTOS DONE. DRSG TO BILAT ARMS CHANGED MULTIPLE TIMES DURING THE NIGHT DUE TO SEROUS DRAINAGE. COCCYX DRSG CHANGED TWICE DURING THE NIGHT. PT TURNED SIDE TO SIDE TO KEEP OFF COCCYX. CENTRAL LINE/XIOMARA TO RIGHT GROIN WITH SEROUSANGIOUS DRAINAGE. DRSG CHANGED TWICE DURING THE NIGHT. CESIA DRSG APPLIED. RIGHT HIP DRSG CHANGE THREE TIMES DURING THE NIGHT DUE TO SEROUS DRAINAGE. PT OPENS EYES TO VERBAL STIMULI. NOT FOLLOWING INSTRUCTIONS. PT MOANING. HANSON CATH DRAINING CLOUDY YELLOW URINE, 115 ML OUT DURING THE NIGHT. REPORT TO ON COMING NURSE.
--- NOTE | 2022-07-06 07:00 | NUR ---
ASSUMED CARE AT 0700 PT IS RESTING ON BIPAP, NOT FOLLOWING COMMANDS. SINUS RHYTHM, LEVOPHED INFUSING TO MAINTAIN BP, ARTERIAL LINE IN RIGHT GROIN. HAS BEEN NPO DUE TO DECREASED MENTAL STATUS. HANSON DRAINING CLOUDY YELOW URINE. MULTIPLE SKIN TEARS, ALL DRAINING SEROUS FLUID, DRESSINGS CHANGED MULTIPLE TIMES LAST SHIFT. CENTRAL LINE TO RIGHT GROIN, BICARB INFUSING AT 75ML/HR, POTASSIUM PHOSPHATE AND MAGNESIUM INFUSING. NO FAMILY AT BEDSIDE. PALLIATIVE CARE FOLLOWING. THORACENTESIS PLANNED FOR TODAY. RN TO CONTINUE TO FOLLOW.
[2022-07-06 08:30] LABS: International Normalized Ratio 0.98; Prothrombin Time Results 10.3 Sec (9.7-11.5)
[2022-07-06 09:51] LABS: Influenza A, PCR NEGATIVE (NEGATIVE); Influenza B, PCR NEGATIVE (NEGATIVE); Resp Syncytial Virus, PCR NEGATIVE (NEGATIVE); SARS-Cov-2 (COVID-19) PCR, MMC NEGATIVE (NEGATIVE)
--- NOTE | 2022-07-06 14:38 | NUR ---
Spiritual Care Visit. At the request of ICU nurse Blanka, visited Pt. Spouse is present and welcomed my visit. Pt. ocassionally responded by opening her right eye. Spouse displays evidence of being a loving caregiver. Facilitated a life review and established rapport with Spouse. Spouse verbalizes that they never had children. Prayed with Pt. and spouse. Spouse verbalized gratitude for the spiritual care visit and welcomed this logistics coordinator's return.
[2022-07-06 14:43] LABS: Glucose, Blood 140 mg/dL (70-99)
[2022-07-06 14:44] LABS: Gentamicin, Trough 1.6 ug/mL (0.0-1.9)
--- NOTE | 2022-07-06 14:57 | NUR ---
PT TO RAND MAKER
--- NOTE | 2022-07-06 16:15 | NUR ---
THORACENTESIS DONE AT BEDSIDE, PT TOLERATED WELL. NO CHANGES TO V/S. RN TO CONTINUE TO MONITOR.
[2022-07-06 16:24] LABS: Hematocrit 22.3 % (33.0-51.0); Hemoglobin 7.6 g/dL (11.5-16.0)
--- NOTE | 2022-07-06 16:33 | NUR ---
DR. CARDONA NOTIFIED OF THORACENTESIS REMOVAL OF 750ML AND NOTIFIED OF H/H RESULTS. NO CHANGE FROM PREVIOUS H/H BUT IS SIGNIFICANTLY LOWER THAN 24 HOURS AGO. NO NEW ORDERS AT THIS TIME. RN TO CONTINUE TO MONITOR.
[2022-07-06 17:02] LABS: Albumin, Body Fluid 0.4 g/dL; Glucose, Body Fluid 164 mg/dL; Lactate Dehydrogenase, Body Fl 49 U/L; Protein, Body Fluid 0.8 g/dL
[2022-07-06 17:11] LABS: Automated BF WBC Count 0.032 K/mm3 (0-999)
[2022-07-06 18:17] LABS: RBC Count, Body Fluid 36 /mm3 (0-0)
[2022-07-06 18:46] LABS: Appearance, Body Fluid Clear (Clear); Color, Body Fluid Yellow (None-Yellow); Total Cell Count, Body Fluid 85
[2022-07-06 18:47] LABS: Body Fluid WBC Count 32 /mm3 (0-999)
--- NOTE | 2022-07-06 19:15 | NUR ---
ASSUMED CARE OF PT @1900. PT ON BIPAP 09/03, FIO2 30%, RR 18, SPO2 96%. HR 70'S. SBP 90'S, MAP >65. ARTERIAL LINE AND CENTRAL LINE PRESENT IN R GROIN. LEVOPHED ON SB. TKO NS 10MLS/HR. MULTIPLE GAUZE BANDAGES PRESENT, MEPILEX ON HEELS. PT TEMP 95.9, WARM BLANKETS APPLIED.
[2022-07-06 19:25] LABS: Gentamicin, Peak 4.1 ug/mL (4.0-8.0)
--- NOTE | 2022-07-06 19:26 | NUR ---
END OF SHIFT NOTE: REPORT GIVEN TO ONCOMING SHIFT. NEURO: PT REMAINS NON-VERBAL. OPENS EYES TO VOICE BUT NOT CONSISTENTLY. ABLE TO NOD YES/NO AT TIMES. CARDIAC: SR, BP MAINTAINED WITH LEVOPHED. TITRATED DOWN TO OFF DURING SHIFT MAP >65. DISTANT HEART SOUNDS RESOLVED AFTER FLUID REMOVED FROM LEFT SIDE. RESP: ON BIPAP, FIO2 30%, MAINTAINED O2 SAT >92%. THORACENTESIS DONE AT BEDSIDE. 750ML REMOVED FROM LEFT SIDE. LUNG SOUNDS COARSE AFTER PROCEDURE. PT COUGH WEAK. GI: NPO, DIETARY WILL REVIEW AGAIN TOMORROW WITH TOPPER PRESS OPERATOR. MEDIUM BROWN BM. : HANSON, UO CLEAR YELLOW, 110ML UO AFTER 20 MG LASIX IV. SKIN: MULTIPLE SKIN TEARS, ALL DRESSINGS CHANGED AND PT BATHED. COCCYX DRESSING CHANGED. HEELS RED/BLANCHABLE. IV: CENTRAL LINE AND ARTERIAL LINE TO RIGHT FEMORAL. BLOOD RETURN ON BOTH LINES. A LINE ZEROED AND WAVEFORM WNL. SIG OTHER TO BEDSIDE TO VISIT. PALLIATIVE CARE RN IN TO VISIT WITH BOTH PT AND FAMILY. SO REMAINS HOPEFUL BUT DOES DISCUSS PT'S DECLINE OVER THE LAST 6 WEEKS.
--- NOTE | 2022-07-06 23:08 | NUR ---
PT TEMP DECREASED TO 95.8. ADRIENNE HUGGER APPLIED.
[2022-07-07 05:16] LABS: Hematocrit 20.5 % (33.0-51.0); Hemoglobin 7.5 g/dL (11.5-16.0); Mean Corpuscular HGB 31.5 pg (26.0-34.0); Mean Corpuscular HGB Conc 36.6 g/dL (31.5-36.5); Mean Platelet Volume 11.5 fL (9.1-12.4); Platelet Count 194 K/mm3 (150-400); RDW Coefficient Variation 17.9 % (11.7-14.2); RDW Standard Deviation 55.6 fL (35.1-46.3); Red Blood Cell Count 2.38 M/mm3 (3.80-5.20); White Blood Cell Count 11.54 K/mm3 (4.00-11.30)
[2022-07-07 05:17] LABS: Mean Corpuscular Volume 86 fL (80-100)
[2022-07-07 05:38] LABS: Free Thyroxine 0.92 ng/dL (0.70-1.60)
[2022-07-07 05:39] LABS: Alanine Aminotransfer (ALT/SGP 8 U/L (12-78); Albumin/Globulin Ratio 0.8 (0.8-1.8); Alk Phos 106 U/L (50-136); Anion Gap 9 mmol/L (6-16); Aspartate Aminotrans (AST/SGOT 18 U/L (12-37); Bilirubin, Total 0.3 mg/dL (0.1-1.0); Blood Urea Nitrogen 21 mg/dL (8-24); Bun/Creatinine Ratio 20.8 (12.0-20.0); CO2, Blood 20 mmol/L (21-32); Calcium, Blood 8.8 mg/dL (8.5-10.1); Chloride, Blood 105 mmol/L (98-108); Creatinine, Blood 1.01 mg/dL (0.40-1.00); Gentamicin, Trough 2.1 ug/mL (0.0-1.9); Globulin, Blood 2.5 g/dL (2.2-4.0); Glomerular Filtration Rate 56 (60-); Glucose, Blood 85 mg/dL (70-99); Phosphorus, Blood 2.5 mg/dL (2.5-4.9); Potassium, Blood 3.3 mmol/L (3.5-5.5); Sodium, Blood 134 mmol/L (136-145); Total Protein, Blood 4.5 g/dL (6.4-8.2)
[2022-07-07 05:50] LABS: Thyroid Stimulating Hormone 10.7 uIU/mL (0.360-4.800); Triiodothyronine, Free 1.37 pg/mL (2.18-3.98)
[2022-07-07 05:55] LABS: BAND PERCENT MAN 20 % (0-8); BASOPHILS PERCENT MAN 0 % (0-2); EOSINOPHILS PERCENT MAN 0 % (0-6); LYMPHOCYTES ABSOLUTE MAN 0.11 K/mm3 (0.84-5.20); LYMPHOCYTES PERCENT MAN 1 % (21-46); MONOCYTES ABSOLUTE MAN 0.11 K/mm3 (0.16-1.47); MONOCYTES PERCENT MAN 1 % (4-13); SEG NEUTROPHILS PERCENT MAN 78 % (41-73); TOTAL CELLS COUNTED 100
--- NOTE | 2022-07-07 06:23 | NUR ---
SUMMARY NEURO/PSYCH/MOBILITY: PT REMAINS NON-VERBAL. OCCASSIONALLY OPENS EYES DURING REPOSITIONING OR BANDAGE CHANGES. PT OCCASIONALLY REACHES FOR BIPAP TUBING BUT IS TOO WEAK TO PULL IT OFF. WEAKLY TRIES TO PUSH PEOPLE AWAY DURING CARE. PT HYPOTHERMIC, ADRIENNE HUGGER APPLIED AND THEN PUT ON STANDBY WHEN PT REACHED T OF 97.6. PT IS MAX ASSIST FOR ALL ADL'S. RESP: PT ON BIPAP THROUGHOUT SHIFT. 14/6 FIO2 30%. LUNGS DIMINISHED IN ALL ALEJANDRE. RR 14-22. SPO2 >92% OCCASIONALLY DESATS INTO THE 80'S AND IMMEDIATELY RECOVERS. CARDIAC: LEVOPHED TITRATED THROUGHOUT SHIFT TO MAINTAIN MAP >65. SBP 90-110. HR 70'S ARTERIAL LINE PATENT IN R GROIN. CENTRAL LINE PATENT AND INFUSING R GROIN. BANDAGE CHANGED. PT 3-4+ WEEPING GENERALIZED EDEMA. PULSES FAINT IN ALL EXTREMETIES. GI: HYPOACTIVE BOWEL SOUNDS. PT NPO. SMALL INCONTINENT BOWEL MOVEMENT THIS AM. : TEMP HANSON IN PLACE AND DRAINING CLEAR YELLOW URINE TO GRAVITY. 1400MLS OUTPUT THIS SHIFT. SKIN: PT HAS MULTIPLE SKIN TEARS AND WOUNDS IN VARIOUS STAGES OF HEALING. INCISION ON RIGHT HIP FREE OF REDDNESS AND SWELLING. WEEPING EDEMA AND BANDAGES CHANGED PRN THROUGHOUT SHIFT. TOES AND FINGERS APPEAR CYANOTIC.
--- NOTE | 2022-07-07 09:35 | NUR ---
ASSUMED CARE PT IS LYING IN BED ON BIPAP WHICH WAS MOVED TO 4L NC. I THEN TITRATED HER DOWN TO 2L; SPO2 >92%. MAP >65 W/ LEVOPHED ON STANDBY. PT OPENS HER EYES AND SQUEEZED MY HANDS/SMILED, BUT WAS VERY WEAK. SHE LOCALIZES TO PAIN. SHE IS WEEPING FROM GENERALIZED EDEMA AND HAS SATURATED DRESSINGS.
--- NOTE | 2022-07-07 10:20 | NUR ---
UPDATE PT WAS TAKEN OFF BIPAP AND PUT ON 4L NC AT 0900, THEN TITRATED DOWN TO 2L NC; SPO2 >92%. LEVOPHED WAS PUT ON STANDBY AT 0830 AND MAP HAS BEEN >65 WITH SBP IN THE 110'S/120'S.
--- NOTE | 2022-07-07 15:33 | NUR ---
Spiritual Care visit. Pt. is awake in bed, and while she can't formulate words well, welcomes my visit with a smile. Spouse is present as is an ICU nurse who is drawing blood and adjusting her monitor leads. Focus of visit is with the spouse who verbalizes gratitude for the treatment the Pt. has been receiving. Facilitate a deeper life review. As spouse talks, Pt. displays evidence of davi with a beautiful smile. Prayed for both the Pt. and the spouse. The spouse verbalized gratitude for the spiritual care visit.
[2022-07-07 15:46] LABS: Gentamicin, Random 1.9 ug/Ml; Glucose, Blood 117 mg/dL (70-99); Vancomycin, Trough 17.9 ug/mL (5.0-10.0)
--- NOTE | 2022-07-07 18:20 | NUR ---
SHIFT SUMMARY PT IS ALERT AND INTERACTIVE BY SMILING AND FOLLOWING COMMANDS. UNABLE TO FORM COMPLEX SENTENCES. SMILE SEEMS TO BE TOWARDS ANYONE SHE SEE'S/CHILDLIKE. PT IS VERY SOMNULENT, BUT WAKES SPONTANEOUSLY. LEVOPHED PUT ON STANDBY AT START OF SHIFT W/ MAP >65; SBP 130-140'S ALL SHIFT. PT HAS BEEN ON RA FOR THE LAST HALF OF THE SHIFT WITH SPO2 >92%. DOBHOFF IN W/ PIVOT INFUSING AT GOAL RATE OF 25MLS/HR; 30ML FLUSH Q4H. PT HAS DEEP, WEEPING GENERALIZED EDEMA W/ CONSTANT SATURATION OF SEROUS FLUID IN THE SURGICAL SITE DRESSINGS. CENTRAL LINE DRESSING WAS CHANGED TWICE TODAY D/T THE WEEPING. HANSON PATENT AND DRAINING TO GRAVITY W/ LARGE AMOUNT OF OUTPUT TODAY. PT'S SIGNIFICANT OTHER IN TODAY AND WAS UPDATED.
[2022-07-07 20:05] LABS: PCO2 Arterial 34.4 mmHg (35-45); PO2 Arterial 67.4 mmHg (80-100); pH Blood Arterial 7.42 (7.35-7.45)
[2022-07-08 00:48] LABS: Glucose, Blood 118 mg/dL (70-99)
[2022-07-08 04:50] LABS: Hematocrit 22.6 % (33.0-51.0); Hemoglobin 8.3 g/dL (11.5-16.0); Mean Corpuscular HGB 31.8 pg (26.0-34.0); Mean Corpuscular HGB Conc 36.7 g/dL (31.5-36.5); Mean Corpuscular Volume 87 fL (80-100); Mean Platelet Volume 11.8 fL (9.1-12.4); Platelet Count 176 K/mm3 (150-400); RDW Coefficient Variation 18.2 % (11.7-14.2); RDW Standard Deviation 57.1 fL (35.1-46.3); Red Blood Cell Count 2.61 M/mm3 (3.80-5.20); White Blood Cell Count 10.72 K/mm3 (4.00-11.30)
[2022-07-08 05:20] LABS: Magnesium, Blood 1.9 mg/dL (1.6-2.4)
[2022-07-08 05:21] LABS: Anion Gap 8 mmol/L (6-16); Blood Urea Nitrogen 30 mg/dL (8-24); CO2, Blood 24 mmol/L (21-32); Calcium, Blood 9.6 mg/dL (8.5-10.1); Chloride, Blood 102 mmol/L (98-108); Creatinine, Blood 1.11 mg/dL (0.40-1.00); Gentamicin, Random 3.5 ug/Ml; Glomerular Filtration Rate 50 (60-); Glucose, Blood 132 mg/dL (70-99); Phosphorus, Blood 3.4 mg/dL (2.5-4.9); Potassium, Blood 3.2 mmol/L (3.5-5.5); Sodium, Blood 134 mmol/L (136-145)
[2022-07-08 05:23] LABS: BAND PERCENT MAN 12 % (0-8); BASOPHILS PERCENT MAN 0 % (0-2); EOSINOPHILS PERCENT MAN 0 % (0-6); METAMYELOCYTE PERCENT MAN 1 % (0-0); MONOCYTES ABSOLUTE MAN 0.21 K/mm3 (0.16-1.47); MONOCYTES PERCENT MAN 2 % (4-13); NEUTROPHILS ABSOLUTE MAN 10.39 K/mm3 (1.96-9.15); SEG NEUTROPHILS PERCENT MAN 85 % (41-73); TOTAL CELLS COUNTED 100
--- NOTE | 2022-07-08 05:45 | NUR ---
SHIFT SUMMARY: PT. REMAINED STABLE OVERNIGHT. VS HAVE BEEN WNL AND PT. IS SATTING WELL ON RA AND IS IN NSR. PT. GLUCOSE HAS REMAINED OVER 100 SO THE Q4 GLUCOSE CHECKS WERE D/C'D AND THE Q6 REMAIN. PT. STILL HAS TF GOING AT GOAL RATE. PT. HAD 850 UOP OVERNIGHT AND ONE SMALL BOWEL MOVEMENT. PT. IS STILL WEEPING AND HAS A SMALL AMOUNT OF DRAINAGE FROM SURGICAL WOUNDS. LINES AND WOUNDS WERE ALL REDRESSED OVERNIGHT. PT. IS RESTING COMFORTABLY IN BED AT THIS TIME.
--- NOTE | 2022-07-08 08:28 | NUR ---
ASSUMED CARE PT IS LYING IN BED SOMULENT AND TRACKING W/ HER EYES. SPO2 >92% ON RA; MAP >65 PRESSORS REMAIN OFF. PT HAS ADRIENNE HUGGER ON W/ 96.2. FAILING TO MAINTAIN TEMPERATURE W/ TEMPS IN THE 95~'S W/O ADRIENNE HUGGER. DRESSINGS ARE NOT SATURATED THEY WERE COMPARED TO YESTERDAY.
[2022-07-08 12:40] LABS: Glucose, Blood 131 mg/dL (70-99)
--- NOTE | 2022-07-08 12:44 | NUR ---
Spiritual Care visit. Pt. is only nominally responsive. Spouse is present. Reestablish rapport and pray with Pt. and spouse. Spouse verbalized gratitude for the spiritual care visit.
--- NOTE | 2022-07-08 14:57 | NUR ---
Received call from sausage tier Stacey reporting Pt's condition is declining. Arrived to Pt's room. Pt non responsive and back on BIPAP with pressors started. Spoke with Pt's SO Galen and reviewed plan of care. Gentle discussion regarding goals of care. Discussed options including maintaining current plan of care and considering comfort care. Gentle education on comfort care philosophy with V/U made by Galen. Galen elected comfort care for Pt. Offered emotional support and active listening. Galen reports plan to leave as he states "I don't want to be here when she passes away". Seed Cleaner Holger arrives to offer spiritual care. Galen reports wishes for Pt to be transported to [facility]. Pt appears comfortable at this time. Spoke with Dr Castro and discussed case. Placed comfort care order and comfort care order set per V/O from Dr Castro. Palliative Care will remain available
--- NOTE | 2022-07-08 15:07 | NUR ---
ART LINE REMOVED AT ~1108 FOLLOWING HOSPITAL POLICY AND PROCEDURE. MANUAL PRESSURE HELD X30MIN, AT THIS TIME HEMOSTASIS ACHIEVED. PT SHAUN WELL, SLEPT THROUGH MOST OF THE PROCEDURE, GRIMACED AND SAID OUCH A COUPLE OF TIMES. LOVENOX WAS TO BE HELD A COUPLE HOURS PER DR GREENE, PT ALSO KEPT SUPINE W HOB AT 30 DEGREES DUE TO RISK OF RE-BLEED. SITE CHECKED Q 15MIN UNTIL 1330 AND REMAINED SOFT W/O BLEEDING. SPO2 READING BETWEEN 93-98% W GOOD WAVEFOARM. AT APPROX 1350 PT BECAME MARCIN, UNABLE TO OBTAIN BP BY MONITOR. PT BP 40/D. PT W AGONAL BREATHING, RT CALLED, DR GREENE CALLED. PT'S S/O AT BEDSIDE. LEVOPHED STARTED AT 20MCG AND RAISED TO 30MCG, VASOPRESSIN STARTED. PT PLACED ON BIPAP PER DR GREENE, LABS ORDERED. RIGHT GROIN REMAINED STABLE/SOFT. PALLIATIVE CARE SPOKE W PT'S S/O AND THE DECISION WAS TO MAKE PT COMFORT CARE, DR GREENE NOTIFED AND WAS AT BEDSIDE SHORTLY AFTER. PRESSORS STOPPED, NOA W PASTORAL CARE AT BEDSIDE NOW.
--- NOTE | 2022-07-08 15:20 | NUR ---
TOD 1519. S/O REQUEST PT GO TO [place].
--- NOTE | 2022-07-08 15:31 | NUR ---
Spiritual care visit conducted. Pt is lying in bed and SO Galen is bedside. We discuss Shila's life briefly and I provide an end of life prayer. All life support is removed and Galen states that he does not want to be present for her but ask if he could be call him "when she is gone." I walk him to his car and he states that he he has no friends or support in this area (He is from [place]). I return to pt's rm and hold pt's hand until she expires. I then call Galen and inform him of her demise and offer a follow up call which he accepts. Galen shows signs of being comforted. Spiritual care will contact Galen in the next few days.
--- NOTE | 2022-07-08 17:04 | NUR ---
PT'S S/O CHANGED TO [facility].
--- NOTE | 2022-07-08 17:34 | NUR ---
PT TO [facility] AT 1735, NO BELONGINGS.
== END 2022-07-08 15:19 | DRG 480 ==
LOC: ER 14:53 → PCU 17:12 → SURS 17:12 → ICUE 17:12 → MEDS 17:12 → ICUE 17:12 → MEDS 18:46 → ICUE 06-26 12:26 → SURS 06-26 17:59 → ICUW 06-27 17:46 → SURS 06-28 02:26 → PCU 06-30 17:17 → SURS 07-03 16:43 → PCU 07-05 02:10 → ICUE 07-05 02:48
PROVIDERS: Family Medicine; Internal Medicine; Internal Medicine Critical Care Medicine; Pharmacist; Student in an Organized Health Care Education/Training Program; ADMIT Internal Medicine
PROC: 5A09357 Assistance with Respiratory Ventilation, Less than 24 Consecutive Hours, Continuous Positive Airway Pressure (ICD-10-PCS; 2022-06-26)
PROC: 3E033XZ Introduction of Vasopressor into Peripheral Vein, Percutaneous Approach (ICD-10-PCS; 2022-06-26)
PROC: 0QS636Z Reposition Right Upper Femur with Intramedullary Internal Fixation Device, Percutaneous Approach (ICD-10-PCS; principal; 2022-06-28)
PROC: 30233N1 Transfusion of Nonautologous Red Blood Cells into Peripheral Vein, Percutaneous Approach (ICD-10-PCS; 2022-06-28)
PROC: 3E03329 Introduction of Other Anti-infective into Peripheral Vein, Percutaneous Approach (ICD-10-PCS; 2022-06-28)
PROC: 0DJ08ZZ Inspection of Upper Intestinal Tract, Via Natural or Artificial Opening Endoscopic (ICD-10-PCS; 2022-06-30)
PROC: 06HY33Z Insertion of Infusion Device into Lower Vein, Percutaneous Approach (ICD-10-PCS; 2022-07-06)
PROC: 04HY32Z Insertion of Monitoring Device into Lower Artery, Percutaneous Approach (ICD-10-PCS; 2022-07-06)
PROC: 4A133B1 Monitoring of Arterial Pressure, Peripheral, Percutaneous Approach (ICD-10-PCS; 2022-07-06)
PROC: 4A133J1 Monitoring of Arterial Pulse, Peripheral, Percutaneous Approach (ICD-10-PCS; 2022-07-06)
DX: S72.141A Displaced intertrochanteric fracture of right femur, initial encounter for closed fracture (principal); A41.9 Sepsis, unspecified organism; G93.41 Metabolic encephalopathy; J96.02 Acute respiratory failure with hypercapnia; R65.21 Severe sepsis with septic shock; E43 Unspecified severe protein-calorie malnutrition; E03.5 Myxedema coma; K20.91 Esophagitis, unspecified with bleeding; I50.32 Chronic diastolic (congestive) heart failure; N39.0 Urinary tract infection, site not specified; Z68.1 Body mass index [BMI] 19.9 or less, adult; R64 Cachexia; K44.9 Diaphragmatic hernia without obstruction or gangrene; Z20.822 Contact with and (suspected) exposure to COVID-19; W18.30XA Fall on same level, unspecified, initial encounter; Z51.5 Encounter for palliative care; D64.9 Anemia, unspecified; E86.0 Dehydration; Z66 Do not resuscitate; K21.9 Gastro-esophageal reflux disease without esophagitis; K20.90 Esophagitis, unspecified without bleeding; I11.0 Hypertensive heart disease with heart failure; E87.6 Hypokalemia; E88.09 Other disorders of plasma-protein metabolism, not elsewhere classified; E03.9 Hypothyroidism, unspecified; M85.80 Other specified disorders of bone density and structure, unspecified site; I46.9 Cardiac arrest, cause unspecified; Z88.6 Allergy status to analgesic agent; Z88.2 Allergy status to sulfonamides; Z98.890 Other specified postprocedural states; Z79.899 Other long term (current) drug therapy; E16.2 Hypoglycemia, unspecified; D63.8 Anemia in other chronic diseases classified elsewhere
CPT/HCPCS: 0241U; 32555; 36415; 36430; 36556; 36620; 51702; 70450; 71045; 72170; 72192; 73552; 73560-RT; 73590; 80048; 80053; 80170; 80202; 80400; 81001; 82042; 82274; 82330; 82533; 82728; 82803; 82945; 82947; 83540; 83550; 83615; 83735; 83880; 83986; 84100; 84157; 84439; 84443; 84481; 85014; 85018; 85025; 85027; 85610; 85651; 86850; 86900; 86901; 86923; 87040; 87070; 87075; 87077; 87086; 87186; 87205; 87252; 87254; 88108; 88305; 89051; 92526; 92610; 93005; 93010; 93306; 94640; 94660; 94664; 94760; 94762; 96360; 96361; 97110; 97162; 97530; 99285-25; A9270; C1713; C1751; C9113; J0171; J0690; J0692; J0696; J0834; J1100; J1580; J1650; J1720; J1940; J2250; J2270; J2370; J2405; J2704; J3010; J3370; J3475; J3480; J7030; J7040; J7042; J7050; J7060; J7070; J7120; P9016; P9047; Q0167; Q9967